=== PATIENT | male | born 1960 | race Hispanic/Latino ===

== ENCOUNTER 2023-01-04 01:34 | Inpatient (IN) | payer OTHER ==
--- OUTSIDE RECORDS SUMMARY | 2023-01-04 01:37 | XMS REPORT | Continuity of Care Document ---
:1960 Author Organization [facility] t Address [address] [place] [address] Care Team Providers Name Role Phone Linda Primary Care Physician Wendy Ferguson Attending Clinician KIM SIDHU Attending Clinician Unavailable KIM SIDHU Admitting Clinician Unavailable Payers Payer Name Policy Type Policy Number Effective Date Expiration Date S carolyn MEDICARE PART A [id number] 2016 \\T\\ B 00:00:00 MEDICAID OF [place] [id number] 2016 00:00:00 Problems Condition Condition Condition Status Onset Resolution Last Treating Co mments Source Name Details Category Date Date Treatment Clinician Date Acute Acute Disease Active [facility] ischemic [facility]-[address] 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 of speech. Hypertensi Hypertensi Disease Active [facility] No known No known Disease Unive rs active active ity of problems problems [facility] Allergies, Adverse Reactions, Alerts Allergy Allergy Status Severity Reaction(s) Onset Inactive Treating Comm ents Source Name Type Date Date Clinician NO KNOWN Drug Active Univers ALLERGIE Class ity of S [facility] Family History Family Member Diagnosis Comments Start Date Stop Date Source Natural brother Hypertension [facility] Natural mother Hypertension [facility] L [facility] Social History Social Habit Start Date Stop Date Quantity Comments Source Exposure to Not sure [facility]-CoV-2 [facility] (event) Branch Alcohol intake 2017-08-25 2017-08-25 [facility] (finding) Tobacco use and 2017-08-22 2017-08-[address] [facility] exposure 00:00:00 00:00:00 Medical Center Sex Assigned At [address] [facility] 00:00:00 00:[facility]:00 [facility] Center Smoking Status Start Date Stop Date Source Never smoker [facility] Medications Ordered Filled Start Stop Current Ordering Indication Dosage Frequency Signature Comments Components Source Medication Medication Date Date Medication? Clinician (SIG) Name Name HYDROcodone 2020- No 1{tbl} 1 tablet, Univers -acetaminop 06-04 07- Oral, ity of hen (NORCO 04:15: 03:29 ONCE, 1 Faustino as 5) 5-325 mg 00 :00 dose, Mon Med ical tablet 1 06/03/21 at [place] tablet 2315, JULIET DULoxetine Yes 60mg QD Take [address] (CYMBALTA) 9-29 by mouth [facility]ukes 60 MG 14:00: daily. Medical capsule 06 [place] amLODIPine Yes 10mg QD Take [address] (NORVASC) 9- by mouth Lukes 10 MG 14:00: daily. Medical tablet [address] [place] [address] hydrALAZINE Yes 50mg QD Take [address] (APRESOLINE 9-29 by mouth Luke s ) 50 MG 14:00: daily. Medical tablet [address] [place] [address] baclofen Yes 10mg Take [address] (LIORESAL) 9-29 by mouth Lukes 10 MG 14:00: every 6 Medical tablet 06 (six) Center hours as needed. ranitidine Yes 150mg QD Take [address] (ZANTAC) 9-29 mg by Lukes 150 MG 14:00: mouth Medical tablet 06 daily. Center valproate Yes Q.5D Take by [facility] t (DEPAKENE) 08-28 mouth 2 [facility]ukes 250 mg/5 mL 14:00: (two) Medic al syrup 06 times Center daily. lactulose Yes constipatio 20g Take [address] (CHRONULAC) 08-28 n by mouth 2 Ruthie kes 20 gram/30 14:00: (two) Medica l mL solution 06 times Center daily as needed. lisinopril Yes 40mg QD Take [address] (PRINIVIL,Z 08-28 by mouth Luke s ESTRIL) 40 14:00: daily. Medic al MG tablet 06 Center gabapentin Yes 300mg [id number] Take [address] (NEURONTIN) 08-28 [id number] mg by L ukes 300 MG 14:00: 3D mouth 3 Medical capsule 06 (three) Center times daily. melatonin 3 Yes 3mg QD Take [address] mg Tab 08-28 by mouth Lukes tablet 14:00: nightly. [address] ondansetron Yes 4mg Take [address] (ZOFRAN) 4 08-28 by mouth Lukes MG tablet 14:00: every 8 Medic al 06 (eight) Center hours as needed for Nausea. traMADol Yes 50mg Take [address] (ULTRAM) 50 08-28 by mouth Luke s mg tablet 14:00: every 6 Medic al 06 (six) Center hours as needed for Pain. multivitami Yes 10mL QD Take [address] n Liqd 08-28 mLs by Lukes 00:00: mouth Medical 00 daily. [place] acetaminoph Yes Take by Uni vers en 325 mg 4-12 mouth. ity of Cap 19:50: [address] amLODIPine 2016- Yes 10mg Take 10 mg U nivers 10 mg 4-12 by mouth ity of tablet 19:50: daily. [address] baclofen 10 Yes 10mg Take 10 mg Univers mg tablet 4-12 by mouth 3 ity of 19:50: (three) [place] [address] times [facility] daily. Branch Docusate Yes Take by Univer s Sodium 100 4-12 mouth. ity of mg tablet 19:50: [address] DULoxetine 2017-0 Yes 60mg Take 60 mg U nivers (CYMBALTA) 4-12 by mouth ity o f 60 mg 19:50: daily. [place] capsule [address] [place] [address] hydralAZINE 2017-0 Yes 100mg Take 100 U nivers 100 mg 4-12 mg by ity of tablet 19:50: mouth [place] [address] every 6 Medical (six) Branch hours. lactulose 2017-0 Yes 30mL Take 30 mL Un amando 10 gram/15 4-12 by mouth ity o f mL oral 19:50: daily. [place] solution [address] [place] [address] lisinopril 2017-0 Yes 40mg Take 40 mg U nivers 40 mg 4-12 by mouth ity of tablet 19:50: daily. [address] gabapentin 2017-0 Yes 100mg Take 100 Un amando 100 mg 4-12 mg by ity of capsule 19:50: mouth 3 [place] [address] (three) Medical times Branch daily. ranitidine 2017- Yes 150mg Take 150 Un amando 150 mg 4-12 mg by ity of tablet 19:50: mouth 2 [place] [address] (two) Medical times Branch daily. valproic Yes Take by Univer s acid 3-27 mouth ity of (DEPAKENE) 19:15: every 8 [place] 250 mg/5 mL 54 (eight) Medic al solution hours. [place] Vital Signs Vital Name Observation Time Observation Value Comments Source Systolic blood 2021-06-04 05:01:00 139 [facility]Hg[facility] Diastolic blood 2021-06-04 05:01:00 73 mm[Hg] [facility] rate 2021-06-04 05:01:00 64 /min [facility] Respiratory rate 2021-06-04 05:01:00 20 /min [facility] Oxygen saturation in 2021-06-04 05:01:00 95 /min [facility] Arterial blood by [facility] Pulse oximetry Branch Body temperature 2021-06-04 01:49:00 36.67 [place] [facility] Body weight 2021-06-04 01:49:00 83.915 kg [facility] BMI 2021-06-04 01:49:00 30.79 kg/m2 [facility] ty [facility] Procedures Procedure Date / Time Performed Performing Clinician Daniel e XR FOOT 3+ VW RIGHT 2021-06-04 04:00:16 Wendy Solano Univers ity of [facility] CT 2021-06-04 02:50:20 Wendy Solano [facility] MAXILLOFACIAL/MANDIBL Medical Br anch E WO CONTRAST NOTICE OF PRIVACY 2021-06-04 02:14:47 Doctor Unassigned, No Univ [facility] PRACTICES Name Medical Branch CONSENT/REFUSAL FOR 2021-06-04 02:12:29 Doctor Unassigned, No [facility] AND Name Medical Branch TREATMENT Encounters Start End Encounter Admission Attending Care Care Encounter Source Date/Time Date/Time Type Type Clinicians Facility Department ID 2021-09-30 Emergency [facility] [id number] [facility] 2021-06-04 Emergency [facility] [id number] Univers 20:45:00 00:08:00 Wendy Amigo [id number] i ty of [place] [id number] [facility] [id number] [facility] alesha 084 Branch Results Test Description Test Time Test Comments Results Result Daniel chang Comments CT No acute facial Universi ty of MAXILLOFACIAL/MA 6 fracture. Extensive [place] [facility] NDIBLE WO 04:05:18 dental caries. The Branch CONTRAST left medial and lateral maxillary incisors areabsent, without definite acute fracture. Clinical correlation is suggested. RL: [id number] AFC: [id number] Ordering physician: WENDY SOLANO INDICATION: Acute facial trauma COMPARISON: None TECHNIQUE: Axial images of the face or performed without the administrationof intravenous contrast. Images were reformatted in the coronal andsagittal plane. CT scan was performed according to ALARA (as low asreasonably achievable) policy. FINDINGS: No acute process is appreciated in the visualized aspect of thebrain. The globes are intact bilaterally without CT evidence forretrobulbar hemorrhage. No acute facial fracture is appreciated. Theparanasal sinuses are clear. There are extensive dental caries. [facility], Radiant Results Inft User - 06/03/2021 11:06 PM CDT Ordering physician: WENDY OLSENDICATION: Acute facial traumaCOMPARISON: NoneTECHNIQUE: Axial images of the face or performed without the administrationof intravenous contrast. Images were reformatted in the coronal andsagittal plane. CT scan was performed according to ALARA (as low asreasonably achievable) policy.FINDINGS: No acute process is appreciated in the visualized aspect of thebrain. The globes are intact bilaterally without CT evidence forretrobulbar hemorrhage. No acute facial fracture is appreciated. Theparanasal sinuses are clear. There are extensive dental caries.IMPRESSIONNo acute facial fracture.Extensive dental caries. The left medial and lateral maxillary incisors areabsent, without definite acute fracture. Clinical correlation is suggested.RL: [id number]: [id number] signed by Perla Boothe MD, PhD at 06/03/2021 11:05 PM RAD, Reason for Addendum BeginsREPORT ABDOMEN/KUB, 1 2 exam:->r/o STATUS:A PATIENT ID: VIEW AP 23:02:00 volvulus [id number] Indication: Abdominal distention. Signed: Christa Mccrayeport Verified Date/Time: 08/31/2017 23:02:03 Reading Location: [address] Ortho Consult Reading RoomAddendum EndsFINAL REPORT RAD, ABDOMEN/KUB, 1 VIEW AP CLINICAL INDICATION: "r/o volvulus" COMPARISON: None TECHNIQUE: Single, frontal radiograph of the abdomen. IMPRESSION: Massively distended left colon concerning for sigmoid volvulus versus distal large bowel obstruction.No pneumatosis or obvious pneumoperitoneum.No acute osseous abnormality. Findings were communicated to Dr. Lugo at the time of this dictation. Signed: Christa Mccray MDReport Verified Date/Time: 08/22/2017 21:01:42 Reading Location: [address] Ortho Consult Reading Room UE EXAM Surgical Pathology 2 Report Case: 18:26:00 [id number] Authorizing Provider: Alberto Murillo MD Collected: 08/23/2017 1239 Ordering Location: [facility] PERIOPERATIVE Received: 08/24/2017 0813 SERVICES Pathologist: Janessa Farias MD Specimens: A) - Large Intestine, Colon - Sigmoid B) - Soft Tissue, Other, rectal stump C) - Appendix A. COLON, SIGMOID, RESECTION: - COLONIC MUCOSA WITH ISCHEMIC TYPE CHANGES - SEROSA WITH ADHESION AND REACTIVE CHANGES - PREDOMINANTLY VIABLE SURGICAL RESECTION MARGINS WITH MUCOSAL ISCHEMIC CHANGES - THREE BENIGN LYMPH NODES - NEGATIVE FOR MALIGNANCYB. RECTUM, STUMP, RESECTION: - SUBMUCOSAL EDEMA AND CONGESTION - SEROSA WITH ADHESION AND REACTIVE CHANGES - MARGINS ARE VIABLEC. APPENDIX, APPENDECTOMY: - ACUTE SEROSITIS WITH REACTIVE CHANGES Signing Pathologist Direct Phone Line: [phone] jake signed by Janessa Farias MD on 08/31/2017 at 6:26 PMA. [id number]. [id number]. [id number] bowel, sigmoid volvulusA. Sigmoid colon; B. Rectal stump; C. AppendixSpecimen A: Received fresh labeled "large intestine, colon sigmoid" is a 51.0 cm in length x 16.0 cm in circumference dilated extending of sigmoid colon.The serosal surface is purple-parker and smooth.The colon is opened to reveal pink-parker, dusky, edematous mucosa throughout with obliteration of the mucosal folds and a markedly dilated lumen. No discrete masses or perforations are identified.Section code: A1, parallel resection margins; A2-A6, patient accounting representative sections of colon; A7, three intact lymph nodes.Specimen B: Received fresh labeled "soft tissue, other", description "rectal stump" is a segment of colon measuring 1.5 cm in length and 12.5 cm in diameter.The serosal surface is purple-parker to red, dusky and edematous.The specimen is opened to reveal pink-parker, dusky, edematous mucosa throughout with obliteration of the mucosal folds. No discrete masses are identified.Section code: B1-B2, parallel resection margins; B3-B5, patient accounting representative section of colon.Specimen C: Received fresh labeled "appendix" is a 4.0 cm in length x 0.6 cm in diameter, intact, vermiform appendix with attached mesoappendix.The serosal surface is purple-parker, dusky, and smooth. Sectioning reveals an unremarkable lumen containing yellow-green semisolid material.Section code: C1, parallel resection margin; C2, patient accounting representative sections of appendix. DB/ewPerformed CLOSTRIDIUM DIFFICILE TOXIN PCR 2017-08-28 14:00:00 Test Item Value Reference Range Interpretation Comme nts CLOSTRIDIUM DIFFICILE TOXIN, PCR (TASHIA) (test code = Not D etected Not Detected 1525) This qualitative real-time polymerase chain reaction assay detects the tcdB gene, encoded on the C.difficile pathogenicity locus (PaLoc). The product of tcdB, toxin B, is a cytotoxin essential for causing C.difficile-associated disease (CDAD) and is found in virtually all toxigenic C.difficile.This assay is performed for patients suspected of having either community-acquired or nosocomial CDAD. Accordingly, only symptomatic patients should be tested and formed stools will be rejected unless ileus ispresent (i.e., specified when ordering). Patients may be colonized with toxigenic C.difficile strains not causing active disease; therefore, clinical correlation is needed when deciding how to manage patients with a positive test result.The assay has not been validated as a test of cure as amplifiablenucleic acid may persist after effective treatment; therefore, follow-up testing of a positive result is not recommended.This qualitative real-time polymerase chain reaction assay detects the tcdB gene, encoded on the C.difficile pathogenicity locus (PaLoc). The product of tcdB, toxin B, is a cytotoxin essential for causing C.difficile- associated disease (CDAD) and is found in virtually all toxigenic C.difficile.This assay is performed for patients suspected of having either community-acquired or nosocomial CDAD. Accordingly, only symptomatic patients should be tested and formed stools will be rejected unless ileus is present (i.e., specified when ordering). Patients may be colonized with toxigenic C.difficile strains not causing active disease; therefore, clinical correlation is needed when deciding how to manage patients with a positive test result.The assay has not been validated as a test ofcure as amplifiable nucleic acid may persist after effective treatment; therefore, follow-up testingof a positive result is not recommended.POCT-GLUCOSE [id number] 12:44:00 Test Item Value Reference Range Interpretation Comments POC-GLUCOSE METER 131 mg/dL 70-110 H TESTED AT [facility] [address] ([employer]) (test code = [place]) [address] POCT-GLUCOSE [id number] 08:30:00 Test Item Value Reference Range Interpretation Comments POC-GLUCOSE METER 128 mg/dL 70-110 H TESTED AT [facility] 67[address] (BEAKER) (test code = [place] 1538) [address] BASIC METABOLIC [id number] 05:23:00 Test Item Value Reference Range Interpretation Comments SODIUM (BEAKER) 136 meq/L 136-145 (test code = 381) POTASSIUM (BEAKER) 3.6 meq/L 3.5-5.1 (test code = 379) CHLORIDE (BEAKER) 105 meq/L 98-107 (test code = 382) CO2 (BEAKER) (test 25 meq/L 22-29 code = 355) BLOOD UREA NITROGEN 9 mg/dL 7-21 (BEAKER) (test code = 354) CREATININE (BEAKER) 0.58 mg/dL 0.57-1.25 (test code = 358) GLUCOSE RANDOM 100 mg/dL 70-105 (BEAKER) (test code = 652) CALCIUM (BEAKER) 7.7 mg/dL 8.4-10.2 L (test code = 697) EGFR (BEAKER) (test 146 mL/min/1.73 ESTIM ATED GFR IS code = 1092) sq m NOT ACCURATE CREATININE CLEARANCE IN PREDICTING GLOMERULAR FILTRATION RATE . ESTIMATED GFR I S NOT APPLICABLE FOR DIALYSIS PATIEN TS. [id number] 05:22:00 Test Item Value Reference Range Interpretation Comments PHOSPHORUS (BEAKER) (test code = 2.2 mg/dL 2.3-4.7 L 604) [id number] 05:22:00 Test Item Value Reference Range Interpretation Comments MAGNESIUM (BEAKER) (test code = 1.8 mg/dL 1.6-2.6 627) CBC (HEMOGRAM ONLY)2017-08-28 05:02:00 Test Item Value Reference Range Interpretation Comments WHITE BLOOD CELL COUNT (BEAKER) 6.5 K/ L 3.5-10.5 (test code = 775) RED BLOOD CELL COUNT (BEAKER) 3.86 M/ L 4.63-6.08 L (test code = 761) HEMOGLOBIN (BEAKER) (test code = 9.9 GM/DL 13.7-17.5 L 410) HEMATOCRIT (BEAKER) (test code = 30.9 % 40.1-51.0 L 411) MEAN CORPUSCULAR VOLUME (BEAKER) 80.1 fL 79.0-92.2 (test code = 753) MEAN CORPUSCULAR HEMOGLOBIN 25.6 pg 25.7-32.2 L (BEAKER) (test code = 751) MEAN CORPUSCULAR HEMOGLOBIN CONC 32.0 GM/DL 32.3-36.5 L (BEAKER) (test code = 752) RED CELL DISTRIBUTION WIDTH 14.8 % 11.6-14.4 H (BEAKER) (test code = 412) PLATELET COUNT (BEAKER) (test 429 K/CU MM 150-450 code = 756) MEAN PLATELET VOLUME (BEAKER) 9.9 fL 9.4-12.4 (test code = 754) NUCLEATED RED BLOOD CELLS 0 /100 WBC 0-0 (AKER) (test code = 413) POCT-GLUCOSE [id number] 00:30:00 Test Item Value Reference Range Interpretation Comments POC-GLUCOSE METER 113 mg/dL 70-110 H TESTED AT [place] [address] ([facility]) (test code = [facility] 1538) [address] POCT-GLUCOSE [id number] 21:15:00 Test Item Value Reference Range Interpretation Comments POC-GLUCOSE METER 94 mg/dL 70-110 TESTED AT [place] [address] ([facility]) (test code = [facility] [address] 1538) POCT-GLUCOSE [id number] 12:01:00 Test Item Value Reference Range Interpretation Comments POC-GLUCOSE METER 105 mg/dL 70-110 TESTED AT [place] [address] ([facility]) (test code = [facility] 1538) [address] URINALYSIS W/ REFLEX URINE [id number] 07:45:00 Test Item Value Reference Range Interpretation Comments COLOR (BEAKER) (test code = 470) Yellow CLARITY (BEAKER) (test code = 469) Cloudy SPECIFIC GRAVITY UA (BEAKER) (test 1.016 1.001-1.035 code = 468) PH UA (BEAKER) (test code = 467) 7.0 5.0-8.0 PROTEIN UA (BEAKER) (test code = Negative Negative 464) GLUCOSE UA (BEAKER) (test code = Negative Negative 365) KETONES UA (BEAKER) (test code = 80 mg/dL Negative A 371) BILIRUBIN UA (BEAKER) (test code = Negative Negative 462) BLOOD UA (BEAKER) (test code = 461) Negative Negative NITRITE UA (BEAKER) (test code = Negative Negative 465) LEUKOCYTE ESTERASE UA (BEAKER) Negative Negative (test code = 466) UROBILINOGEN UA (BEAKER) (test code 8.0 mg/dL 0.2-1.0 H = 463) RBC UA (BEAKER) (test code = 519) 0 /HPF WBC UA (BEAKER) (test code = 520) 4 /HPF MUCUS (BEAKER) (test code = 1574) Few SOURCE(BEAKER) (test code = 2795) POCT-GLUCOSE [id number] 07:01:00 Test Item Value Reference Range Interpretation Comments POC-GLUCOSE METER 91 mg/dL 70-110 TESTED AT [facility] 6720 (BEAKER) (test code = [place] [facility] [address]38) BASIC METABOLIC [id number] 07:01:00 Test Item Value Reference Range Interpretation Comments SODIUM (BEAKER) 136 meq/L 136-145 (test code = 381) POTASSIUM (BEAKER) 3.5 meq/L 3.5-5.1 (test code = 379) CHLORIDE (BEAKER) 104 meq/L 98-107 (test code = 382) CO2 (BEAKER) (test 25 meq/L 22-29 code = 355) BLOOD UREA NITROGEN 16 mg/dL 7-21 (BEAKER) (test code = 354) CREATININE (BEAKER) 0.57 mg/dL 0.57-1.25 (test code = 358) GLUCOSE RANDOM 84 mg/dL 70-105 (BEAKER) (test code = 652) CALCIUM (BEAKER) 7.9 mg/dL 8.4-10.2 L (test code = 697) EGFR (BEAKER) (test 149 mL/min/1.73 ESTIM ATED GFR IS code = 1092) sq m NOT ACCURATE CREATININE CLEARANCE IN PREDICTING GLOMERULAR FILTRATION RATE . ESTIMATED GFR I S NOT APPLICABLE FOR DIALYSIS PATIEN TS. [id number] 06:56:00 Test Item Value Reference Range Interpretation Comments PHOSPHORUS (BEAKER) (test code = 2.4 mg/dL 2.3-4.7 604) [id number] 06:56:00 Test Item Value Reference Range Interpretation Comments MAGNESIUM (BEAKER) (test code = 1.6 mg/dL 1.6-2.6 627) CBC (HEMOGRAM ONLY)2017-08-27 06:36:00 Test Item Value Reference Range Interpretation Comments WHITE BLOOD CELL COUNT (BEAKER) 7.3 K/ L 3.5-10.5 (test code = 775) RED BLOOD CELL COUNT (BEAKER) 3.71 M/ L 4.63-6.08 L (test code = 761) HEMOGLOBIN (BEAKER) (test code = 9.6 GM/DL 13.7-17.5 L 410) HEMATOCRIT (BEAKER) (test code = 30.2 % 40.1-51.0 L 411) MEAN CORPUSCULAR VOLUME (BEAKER) 81.4 fL 79.0-92.2 (test code = 753) MEAN CORPUSCULAR HEMOGLOBIN 25.9 pg 25.7-32.2 (BEAKER) (test code = 751) MEAN CORPUSCULAR HEMOGLOBIN CONC 31.8 GM/DL 32.3-36.5 L (BEAKER) (test code = 752) RED CELL DISTRIBUTION WIDTH 15.1 % 11.6-14.4 H (BEAKER) (test code = 412) PLATELET COUNT (BEAKER) (test 416 K/CU MM 150-450 code = 756) MEAN PLATELET VOLUME (BEAKER) 9.3 fL 9.4-12.4 L (test code = 754) NUCLEATED RED BLOOD CELLS 0 /100 WBC 0-0 (BEAKER) (test code = 413) POCT-GLUCOSE [id number] 00:18:00 Test Item Value Reference Range Interpretation Comments POC-GLUCOSE METER 92 mg/dL 70-110 TESTED AT [facility] [address] (BEAKER) (test code = [place] [address] 1538) RAD, CHEST, 1 VIEW, NON [id number] 09:09:00Reason for exam:->fever, leukocytosisReason for exam:->assess for aspiration/pneumoniaShould this be performed at the bedside?->YesFINAL REPORT Chest one view. Clinical history: fever, leukocytosisassess for aspiration/pneumonia Comparison: August 24, 2017 Discussion: A frontal chest is provided. Cardiomediastinal contours are unchanged. Low lung volume. There is mild vascular congestion and interstitial edema. Previously seen atelectatic changes have improved. No new consolidation. No pneumothorax or significant pleural effusion. There is nonspecific gaseous distention of bowel. Signed: Charley Sahueport Verified Date/Time: 08/26/2017 09:09:27 Reading Location: [facility] Radiology Reading Room [id number] 06:20:00 Test Item Value Reference Range Interpretation Comments PHOSPHORUS (BEAKER) (test code = 2.9 mg/dL 2.3-4.7 604) [id number] 06:20:00 Test Item Value Reference Range Interpretation Comments MAGNESIUM (BEAKER) (test code = 1.4 mg/dL 1.6-2.6 L 627) BASIC METABOLIC [id number] 06:20:00 Test Item Value Reference Range Interpretation Comments SODIUM (BEAKER) 136 meq/L 136-145 (test code = 381) POTASSIUM (BEAKER) 3.5 meq/L 3.5-5.1 (test code = 379) CHLORIDE (BEAKER) 105 meq/L 98-107 (test code = 382) CO2 (BEAKER) (test 24 meq/L 22-29 code = 355) BLOOD UREA NITROGEN 15 mg/dL 7-21 (BEAKER) (test code = 354) CREATININE (BEAKER) 0.66 mg/dL 0.57-1.25 (test code = 358) GLUCOSE RANDOM 118 mg/dL 70-105 H (BEAKER) (test code = 652) CALCIUM (BEAKER) 8.0 mg/dL 8.4-10.2 L (test code = 697) EGFR (BEAKER) (test 126 mL/min/1.73 ESTIM ATED GFR IS code = 1092) sq m NOT ACCURATE CREATININE CLEARANCE IN PREDICTING GLOMERULAR FILTRATION RATE . ESTIMATED GFR I S NOT APPLICABLE FOR DIALYSIS PATIEN TS. PROTHROMBIN [id number] 06:16:00 Test Item Value Reference Range Interpretation Comments PROTIME (BEAKER) (test code = 16.8 seconds 11.7-14.7 H 759) INR (BEAKER) (test code = 370) 1.4 <=5.9 RECOMMENDED COUMADIN/WARFARIN INR THERAPY RANGESSTANDARD DOSE: 2.0 - 3.0 Includes: PROPHYLAXIS for venous thrombosis, systemic embolization; TREATMENT for venous thrombosis and/or pulmonary embolus.HIGH RISK: Target INR is 2.5-3.5 for patients with mechanical heart valves.CBC (HEMOGRAM ONLY)2017-08-26 06:07:00 Test Item Value Reference Range Interpretation Comments WHITE BLOOD CELL COUNT (BEAKER) 12.5 K/ L 3.5-10.5 H (test code = 775) RED BLOOD CELL COUNT (BEAKER) 4.12 M/ L 4.63-6.08 L (test code = 761) HEMOGLOBIN (BEAKER) (test code = 10.5 GM/DL 13.7-17.5 L 410) HEMATOCRIT (BEAKER) (test code = 33.2 % 40.1-51.0 L 411) MEAN CORPUSCULAR VOLUME (BEAKER) 80.6 fL 79.0-92.2 (test code = 753) MEAN CORPUSCULAR HEMOGLOBIN 25.5 pg 25.7-32.2 L (BEAKER) (test code = 751) MEAN CORPUSCULAR HEMOGLOBIN CONC 31.6 GM/DL 32.3-36.5 L (BEAKER) (test code = 752) RED CELL DISTRIBUTION WIDTH 15.3 % 11.6-14.4 H (BEAKER) (test code = 412) PLATELET COUNT (BEAKER) (test 407 K/CU MM 150-450 code = 756) MEAN PLATELET VOLUME (BEAKER) 9.8 fL 9.4-12.4 (test code = 754) NUCLEATED RED BLOOD CELLS 0 /100 WBC 0-0 (BEAKER) (test code = 413) [id number] 04:23:00 Test Item Value Reference Range Interpretation Comments PHOSPHORUS (BEAKER) (test code = 1.8 mg/dL 2.3-4.7 L 604) [id number] 04:23:00 Test Item Value Reference Range Interpretation Comments MAGNESIUM (BEAKER) (test code = 1.6 mg/dL 1.6-2.6 627) BASIC METABOLIC [id number] 04:23:00 Test Item Value Reference Range Interpretation Comments SODIUM (BEAKER) 134 meq/L 136-145 L (test code = 381) POTASSIUM (BEAKER) 3.8 meq/L 3.5-5.1 (test code = 379) CHLORIDE (BEAKER) 106 meq/L 98-107 (test code = 382) CO2 (BEAKER) (test 23 meq/L 22-29 code = 355) BLOOD UREA NITROGEN 8 mg/dL 7-21 (BEAKER) (test code = 354) CREATININE (BEAKER) 0.65 mg/dL 0.57-1.25 (test code = 358) GLUCOSE RANDOM 111 mg/dL 70-105 H (BEAKER) (test code = 652) CALCIUM (BEAKER) 8.0 mg/dL 8.4-10.2 L (test code = 697) EGFR (BEAKER) (test 128 mL/min/1.73 ESTIM ATED GFR IS code = 1092) sq m NOT ACCURATE CREATININE CLEARANCE IN PREDICTING GLOMERULAR FILTRATION RATE . ESTIMATED GFR I S NOT APPLICABLE FOR DIALYSIS PATIEN TS. PROTHROMBIN [id number] 04:05:00 Test Item Value Reference Range Interpretation Comments PROTIME (BEAKER) (test code = 16.3 seconds 11.7-14.7 H 759) INR (BEAKER) (test code = 370) 1.3 <=5.9 RECOMMENDED COUMADIN/WARFARIN INR THERAPY RANGESSTANDARD DOSE: 2.0 - 3.0 Includes: PROPHYLAXIS for venous thrombosis, systemic embolization; TREATMENT for venous thrombosis and/or pulmonary embolus.HIGH RISK: Target INR is 2.5-3.5 for patients with mechanical heart valves.CBC (HEMOGRAM ONLY)2017-08-25 03:56:00 Test Item Value Reference Range Interpretation Comments WHITE BLOOD CELL COUNT (BEAKER) 8.9 K/ L 3.5-10.5 (test code = 775) RED BLOOD CELL COUNT (BEAKER) 4.14 M/ L 4.63-6.08 L (test code = 761) HEMOGLOBIN (BEAKER) (test code = 10.5 GM/DL 13.7-17.5 L 410) HEMATOCRIT (BEAKER) (test code = 33.6 % 40.1-51.0 L 411) MEAN CORPUSCULAR VOLUME (BEAKER) 81.2 fL 79.0-92.2 (test code = 753) MEAN CORPUSCULAR HEMOGLOBIN 25.4 pg 25.7-32.2 L (BEAKER) (test code = 751) MEAN CORPUSCULAR HEMOGLOBIN CONC 31.3 GM/DL 32.3-36.5 L (BEAKER) (test code = 752) RED CELL DISTRIBUTION WIDTH 15.5 % 11.6-14.4 H (BEAKER) (test code = 412) PLATELET COUNT (BEAKER) (test 385 K/CU MM 150-450 code = 756) MEAN PLATELET VOLUME (BEAKER) 9.0 fL 9.4-12.4 L (test code = 754) NUCLEATED RED BLOOD CELLS 0 /100 WBC 0-0 (BEAKER) (test code = 413) RAD, CHEST, 1 VIEW, NON [id number] 19:13:00Reason for exam:->evaluate for fluid overloadFINAL REPORT Chest, portable AP view History: Shortness of breath Comparison: No comparisons available for review IMPRESSION: The heart is within normal limits of size. There are low lung volumes. Pulmonary vascular congestion is present. There is mild interstitial edema. There isno focal consolidation, sizable pleural effusion, or pneumothorax. Signed: Yariel Duncan Verified Date/Time: 08/24/2017 19:13:39 Reading Location: [address] Consult Reading Room POCT-GLUCOSE METER 2017-08-24 11:31:00 Test Item Value Reference Range Interpretation Comments POC-GLUCOSE METER 135 mg/dL 70-110 H TESTED AT [facility] 6720 (BEAKER) (test code = [place] 1538) [id number] CBC (HEMOGRAM ONLY)2017-08-24 06:14:00 Test Item Value Reference Range Interpretation Comments WHITE BLOOD CELL COUNT (BEAKER) 5.4 K/ L 3.5-10.5 (test code = 775) RED BLOOD CELL COUNT (BEAKER) 4.31 M/ L 4.63-6.08 L (test code = 761) HEMOGLOBIN (BEAKER) (test code = 10.8 GM/DL 13.7-17.5 L 410) HEMATOCRIT (BEAKER) (test code = 35.6 % 40.1-51.0 L 411) MEAN CORPUSCULAR VOLUME (BEAKER) 82.6 fL 79.0-92.2 (test code = 753) MEAN CORPUSCULAR HEMOGLOBIN 25.1 pg 25.7-32.2 L (BEAKER) (test code = 751) MEAN CORPUSCULAR HEMOGLOBIN CONC 30.3 GM/DL 32.3-36.5 L (BEAKER) (test code = 752) RED CELL DISTRIBUTION WIDTH 15.6 % 11.6-14.4 H (BEAKER) (test code = 412) PLATELET COUNT (BEAKER) (test 414 K/CU MM 150-450 code = 756) MEAN PLATELET VOLUME (BEAKER) 9.5 fL 9.4-12.4 (test code = 754) NUCLEATED RED BLOOD CELLS 0 /100 WBC 0-0 (BEAKER) (test code = 413) BASIC METABOLIC [id number] 06:08:00 Test Item Value Reference Range Interpretation Comments SODIUM (BEAKER) 139 meq/L 136-145 (test code = 381) POTASSIUM (BEAKER) 3.9 meq/L 3.5-5.1 (test code = 379) CHLORIDE (BEAKER) 111 meq/L 98-107 H (test code = 382) CO2 (BEAKER) (test 23 meq/L 22-29 code = 355) BLOOD UREA NITROGEN 17 mg/dL 7-21 (BEAKER) (test code = 354) CREATININE (BEAKER) 0.72 mg/dL 0.57-1.25 (test code = 358) GLUCOSE RANDOM 121 mg/dL 70-105 H (BEAKER) (test code = 652) CALCIUM (BEAKER) 7.7 mg/dL 8.4-10.2 L (test code = 697) EGFR (BEAKER) (test 114 mL/min/1.73 ESTIM ATED GFR IS code = 1092) sq m NOT ACCURATE CREATININE CLEARANCE IN PREDICTING GLOMERULAR FILTRATION RATE . ESTIMATED GFR I S NOT APPLICABLE FOR DIALYSIS PATIEN TS. [id number] 06:07:00 Test Item Value Reference Range Interpretation Comments PHOSPHORUS (BEAKER) (test code = 2.8 mg/dL 2.3-4.7 604) [id number] 06:07:00 Test Item Value Reference Range Interpretation Comments MAGNESIUM (BEAKER) (test code = 1.8 mg/dL 1.6-2.6 627) PROTHROMBIN [id number] 05:57:00 Test Item Value Reference Range Interpretation Comments PROTIME (BEAKER) (test code = 16.6 seconds 11.7-14.7 H 759) INR (BEAKER) (test code = 370) 1.4 <=5.9 RECOMMENDED COUMADIN/WARFARIN INR THERAPY RANGESSTANDARD DOSE: 2.0 - 3.0 Includes: PROPHYLAXIS for venous thrombosis, systemic embolization; TREATMENT for venous thrombosis and/or pulmonary embolus.HIGH RISK: Target INR is 2.5-3.5 for patients with mechanical heart valves.POCT-GLUCOSE [id number] 15:56:00 Test Item Value Reference Range Interpretation Comments POC-GLUCOSE METER 144 mg/dL 70-110 H TESTED AT [facility] 6720 (BEAKER) (test code = [place] 1538) [id number] 05:55:00 Test Item Value Reference Range Interpretation Comments PHOSPHORUS (BEAKER) (test code = 3.8 mg/dL 2.3-4.7 604) [id number] 05:55:00 Test Item Value Reference Range Interpretation Comments MAGNESIUM (BEAKER) (test code = 1.6 mg/dL 1.6-2.6 627) BASIC METABOLIC [id number] 05:55:00 Test Item Value Reference Range Interpretation Comments SODIUM (BEAKER) 139 meq/L 136-145 (test code = 381) POTASSIUM (BEAKER) 3.4 meq/L 3.5-5.1 L (test code = 379) CHLORIDE (BEAKER) 107 meq/L 98-107 (test code = 382) CO2 (BEAKER) (test 22 meq/L 22-29 code = 355) BLOOD UREA NITROGEN 21 mg/dL 7-21 (BEAKER) (test code = 354) CREATININE (BEAKER) 0.73 mg/dL 0.57-1.25 (test code = 358) GLUCOSE RANDOM 94 mg/dL 70-105 (BEAKER) (test code = 652) CALCIUM (BEAKER) 8.5 mg/dL 8.4-10.2 (test code = 697) EGFR (BEAKER) (test 112 mL/min/1.73 ESTIM ATED GFR IS code = 1092) sq m NOT ACCURATE CREATININE CLEARANCE IN PREDICTING GLOMERULAR FILTRATION RATE . ESTIMATED GFR I S NOT APPLICABLE FOR DIALYSIS PATIEN TS. CBC W/PLT COUNT & AUTO [id number] 05:38:00 Test Item Value Reference Range Interpretation Comments WHITE BLOOD CELL COUNT (BEAKER) 9.8 K/ L 3.5-10.5 (test code = 775) RED BLOOD CELL COUNT (BEAKER) 4.25 M/ L 4.63-6.08 L (test code = 761) HEMOGLOBIN (BEAKER) (test code = 11.0 GM/DL 13.7-17.5 L 410) HEMATOCRIT (BEAKER) (test code = 34.3 % 40.1-51.0 L 411) MEAN CORPUSCULAR VOLUME (BEAKER) 80.7 fL 79.0-92.2 (test code = 753) MEAN CORPUSCULAR HEMOGLOBIN 25.9 pg 25.7-32.2 (BEAKER) (test code = 751) MEAN CORPUSCULAR HEMOGLOBIN CONC 32.1 GM/DL 32.3-36.5 L (BEAKER) (test code = 752) RED CELL DISTRIBUTION WIDTH 15.6 % 11.6-14.4 H (BEAKER) (test code = 412) PLATELET COUNT (BEAKER) (test 458 K/CU MM 150-450 H code = 756) MEAN PLATELET VOLUME (BEAKER) 9.0 fL 9.4-12.4 L (test code = 754) NUCLEATED RED BLOOD CELLS 0 /100 WBC 0-0 (BEAKER) (test code = 413) NEUTROPHILS RELATIVE PERCENT 74 % (BEAKER) (test code = 429) LYMPHOCYTES RELATIVE PERCENT 15 % (BEAKER) (test code = 430) MONOCYTES RELATIVE PERCENT 10 % (BEAKER) (test code = 431) EOSINOPHILS RELATIVE PERCENT 0 % (BEAKER) (test code = 432) BASOPHILS RELATIVE PERCENT 0 % (BEAKER) (test code = 437) NEUTROPHILS ABSOLUTE COUNT 7.24 K/ L 1.78-5.38 H (BEAKER) (test code = 670) LYMPHOCYTES ABSOLUTE COUNT 1.45 K/ L 1.32-3.57 (BEAKER) (test code = 414) MONOCYTES ABSOLUTE COUNT (BEAKER) 0.96 K/ L 0.30-0.82 H (test code = 415) EOSINOPHILS ABSOLUTE COUNT 0.02 K/ L 0.04-0.54 L (BEAKER) (test code = 416) BASOPHILS ABSOLUTE COUNT (BEAKER) 0.03 K/ L 0.01-0.08 (test code = 417) IMMATURE GRANULOCYTES-RELATIVE 1 % 0-1 PERCENT (BEAKER) (test code = 2801) RAD, ABDOMEN/KUB, 1 VIEW [id number] 00:17:00Reason for exam:->evaluate tube placement and compare volvulus from before Should this be performed at the bedside?->YesFINAL REPORT EXAMINATION: SUPINE ABDOMEN CLINICAL INDICATION: Sigmoid volvulus,status post rectal tube placement. Evaluate for interval change. IMPRESSION: Compared with 08/22/2017, 2032 hours Two rectal tubes have been placed in the interval. The tip of one of the tubes projects over the midline near the level of the sacrum. The tip of the second tube projects over the left lower pelvis. Overall, gaseous distention of the colon persists but is significantly improved. Large volume of inspissated stool is again noted within the colon. The colonic fecal burden limits evaluation for pneumatosis. Evaluation for free air is limited by supine patient positioning. Signed: Lincoln Munoz [place] Verified Date/Time: 08/23/2017 00:17:48 Reading Location: [address] Reading Room LACTATE DEHYDROGENASE (LDH)2017-08-22 21:20:00 Test Item Value Reference Range Interpretation Comments LACTATE DEHYDROGENASE (BEAKER) (test 237 U/L 125-220 H code = 635) COMPREHENSIVE METABOLIC [id number] 21:20:00 Test Item Value Reference Range Interpretation Comments TOTAL PROTEIN 7.1 gm/dL 6.0-8.3 (BEAKER) (test code = 770) ALBUMIN (BEAKER) 3.5 g/dL 3.5-5.0 (test code = 1145) ALKALINE PHOSPHATASE 87 U/L 40-150 (BEAKER) (test code = 346) BILIRUBIN TOTAL 0.3 mg/dL 0.2-1.2 (BEAKER) (test code = 377) SODIUM (BEAKER) (test 138 meq/L 136-145 code = 381) POTASSIUM (BEAKER) 3.4 meq/L 3.5-5.1 L (test code = 379) CHLORIDE (BEAKER) 104 meq/L 98-107 (test code = 382) CO2 (BEAKER) (test 24 meq/L 22-29 code = 355) BLOOD UREA NITROGEN 20 mg/dL 7-21 (BEAKER) (test code = 354) CREATININE (BEAKER) 0.78 mg/dL 0.57-1.25 (test code = 358) GLUCOSE RANDOM 122 mg/dL 70-105 H (BEAKER) (test code = 652) CALCIUM (BEAKER) 9.0 mg/dL 8.4-10.2 (test code = 697) AST (SGOT) (BEAKER) 11 U/L 5-34 (test code = 353) ALT (SGPT) (BEAKER) 11 U/L 6-55 (test code = 347) EGFR (BEAKER) (test 104 ESTIMATE D GFR IS code = 1092) mL/min/1.73 sq NOT ACCURA TE m CREATININE CLEARANCE IN PREDICTING GLOMERULAR FILTRATION RATE . ESTIMATED GFR I S NOT APPLICABLE FOR DIALYSIS PATIEN TS. LACTIC ACID, VENOUS, WHOLE [id number] 21:15:00 Test Item Value Reference Range Interpretation Comments LACTATE BLOOD VENOUS 1.2 mmol/L 0.5-2.2 Specime n slightly (2) (BEAKER) (test hemolyzed code = 2872) Effective 04/02/2016: Units/Reference Range ChangeNew: 0.5-2.2 mmol/L Previous: 5- 20 mg/dLPROTHROMBIN [id number] 21:07:00 Test Item Value Reference Range Interpretation Comments PROTIME (BEAKER) (test code = 15.0 seconds 11.7-14.7 H 759) INR (BEAKER) (test code = 370) 1.2 <=5.9 RECOMMENDED COUMADIN/WARFARIN INR THERAPY RANGESSTANDARD DOSE: 2.0 - 3.0 Includes: PROPHYLAXIS for venous thrombosis, systemic embolization; TREATMENT for venous thrombosis and/or pulmonary embolus.HIGH RISK: Target INR is 2.5-3.5 for patients with mechanical heart valves.CBC W/PLT COUNT & AUTO [id number] 21:06:00 Test Item Value Reference Range Interpretation Comments WHITE BLOOD CELL COUNT (BEAKER) 11.9 K/ L 3.5-10.5 H (test code = 775) RED BLOOD CELL COUNT (BEAKER) 4.66 M/ L 4.63-6.08 (test code = 761) HEMOGLOBIN (BEAKER) (test code = 11.6 GM/DL 13.7-17.5 L 410) HEMATOCRIT (BEAKER) (test code = 37.2 % 40.1-51.0 L 411) MEAN CORPUSCULAR VOLUME (BEAKER) 79.8 fL 79.0-92.2 (test code = 753) MEAN CORPUSCULAR HEMOGLOBIN 24.9 pg 25.7-32.2 L (BEAKER) (test code = 751) MEAN CORPUSCULAR HEMOGLOBIN CONC 31.2 GM/DL 32.3-36.5 L (BEAKER) (test code = 752) RED CELL DISTRIBUTION WIDTH 15.7 % 11.6-14.4 H (BEAKER) (test code = 412) PLATELET COUNT (BEAKER) (test 439 K/CU MM 150-450 code = 756) MEAN PLATELET VOLUME (BEAKER) 9.0 fL 9.4-12.4 L (test code = 754) NUCLEATED RED BLOOD CELLS 0 /100 WBC 0-0 (BEAKER) (test code = 413) NEUTROPHILS RELATIVE PERCENT 87 % (BEAKER) (test code = 429) LYMPHOCYTES RELATIVE PERCENT 8 % (BEAKER) (test code = 430) MONOCYTES RELATIVE PERCENT 5 % (BEAKER) (test code = 431) EOSINOPHILS RELATIVE PERCENT 0 % (BEAKER) (test code = 432) BASOPHILS RELATIVE PERCENT 0 % (BEAKER) (test code = 437) NEUTROPHILS ABSOLUTE COUNT 10.26 K/ L 1.78-5.38 H (BEAKER) (test code = 670) LYMPHOCYTES ABSOLUTE COUNT 0.93 K/ L 1.32-3.57 L (BEAKER) (test code = 414) MONOCYTES ABSOLUTE COUNT (BEAKER) 0.60 K/ L 0.30-0.82 (test code = 415) EOSINOPHILS ABSOLUTE COUNT 0.00 K/ L 0.04-0.54 L (BEAKER) (test code = 416) BASOPHILS ABSOLUTE COUNT (BEAKER) 0.02 K/ L 0.01-0.08 (test code = 417) IMMATURE GRANULOCYTES-RELATIVE 0 % 0-1 PERCENT (BEAKER) (test code = 2801)
[2023-01-04] MEDS ORDERED: NA CHLORIDE 0.9% 2,000 ML ONE (01:48)
[2023-01-04] MEDS ORDERED: ACETAMINOPHEN 650MG/RECT SUPP PR ONE (01:48)
[2023-01-04 02:11] LABS: Arterial Blood Carboxyhemoglob 1.1 % (0-1.5); Blood Gas Oxyhemoglobin 95.6 % (94-97); Blood O2 Saturation 97.7 % (92-98.5)
[2023-01-04 02:22] LABS: Absolute Lymphocytes (CBC) 0.5 K/uL (0.7-4.9); Hematocrit 42.8 % (39.6-49.0); Lymphocytes % 9.2 % (15.3-44.8); MCV 92.4 fL (80-100); MPV 8.5 fL (7.6-11.3); RBC Red Blood Cell Count 4.63 M/uL (4.33-5.43)
[2023-01-04 02:28] LABS: Urine Blood 2+ (Negative); Urine Glucose Negative (Negative); Urine Protein Trace (Negative); Urine Specific Gravity >=1.030 (1.005-1.030); Urine pH 5.5 (5.0-7.0)
[2023-01-04 02:30] LABS: Protime INR 1.24
--- NOTE | 2023-01-04 02:37 | ER ---
Nurse's Notes [facility] Name: Chinedu Singh Age: 62 yrs Sex: Male : 1960 Arrival Date: 01/04/2023 Time: 01:38 Bed 3 Private MD: Diagnosis: Severe sepsis with septic shock;Aspiration event;Acute respiratory failure with hypoxia Presentation: 01/04 01:38 Chief complaint: EMS states: Toned out for aspiration, on arrival at [place] [address] home 02 70 % on RA , patient put on CPAP per EMS O2 increased to 92 %, per EMS do not know what patient aspirated on. Coronavirus screen: Vaccine status:. Ebola Screen: No symptoms or risks identified at this time. Initial Sepsis Screen: Does the patient meet any 2 criteria? Temp <36.0*C (96.8*F)) or > 38.3*C (100.9*F). HR > 90 bpm. Does the patient have a suspected source of infection? No. Patient's initial sepsis screen is negative. Risk Assessment: Do you want to hurt yourself or someone else? Patient reports no desire to harm self or others. Onset of symptoms was January 04, 2023 at 01:00. 01:38 Method Of Arrival: EMS ke1 01:38 Acuity: LITO 3 ke1 Triage Assessment: 01:50 General: Appears distressed, Behavior is drowsy. Pain: Unable to use pain scale. FLACC ke1 scale score is 0 out of 10. Historical: - Allergies: 01:44 No Known Allergies; ke1 - PMHx: 01:44 Hypertensive disorder; Depressive disorder; dysarthria; gerd; vascular dementia; ke1 hemiplegia; cerebral infarction; - Immunization history:: Adult Immunizations unknown. - Social history:: Smoking status: unknown. Screenin:50 Abuse screen: Denies threats or abuse. Nutritional screening: Difficulty ke1 chewing/swallowing? Yes. Tuberculosis screening: No symptoms or risk factors identified. 02:03 [facility] ED Fall Risk Assessment (Adult). ke1 Assessment: 01:51 Respiratory: Reports Airway is patent Patient placed CPAP:. ke1 02:04 Respiratory: Patient placed on BiPAP: Inspiratory Pressure: 16 Expiratory (EPAP) ke1 Pressure: 8 FiO2%: 90 Respiratory Rate: 18. Vital Signs: 01:38 BP 91 / 38; Pulse 112; Resp 15; Temp 101; Pulse Ox 94% on CPAP; Weight 91.17 kg; Height ke1 5 ft. 3 in. (160.02 cm); 02:03 BP 116 / 77; Pulse 103; Resp 18; Pulse Ox 95% on 90% BiPAP; ke1 02:29 BP 133 / 75; Pulse 95; Resp 22 S; Temp 101.5(C); Pulse Ox 99% on 95% BiPAP; as6 02:51 BP 105 / 94; Pulse 93; Resp 17 S; Temp 100.8(C); Pulse Ox 97% on 75% BiPAP; as6 04:28 BP 145 / 86; Pulse 86; Resp 21 S; Temp 99.2(C); Pulse Ox 97% on 75% BiPAP; as6 04:32 BP 145 / 86; Pulse 86; Resp 21; Temp 99.2; Pulse Ox 93% on BiPAP; Pain 0/10; ke1 01:38 Body Mass Index 35.61 (91.17 kg, 160.02 cm) ke1 ED Course: 01:38 Patient arrived in ED. ke1 01:38 Luma Howard MD is Attending Physician. sd2 01:38 Mile Castellano RN is Primary Nurse. ke1 01:42 Maintain EMS IV. Dressing intact. Good blood return noted. Site clean \T\ dry. Gauge \T\ tw 5 site: 22 Right hand. 01:42 O2 via RT at bedside patient placed on Bi-pap. tw5 01:42 Patient has correct armband on for positive identification. Client placed on continuous tw5 cardiac and pulse oximetry monitoring. NIBP monitoring applied. Noise minimized. 01:44 Triage completed. ke1 02:05 Chest Single View XRAY In Process Unspecified. EDMS 02:17 Pate cath inserted, using sterile technique, 16 Fr., returned avis urine. Patient as6 tolerated well. Inserted saline lock: 18 gauge in left EJ, using aseptic technique. Blood collected. 02:18 Arm band placed on. as6 02:35 Lion Tracey MD is Hospitalizing Provider. sd2 03:[address] In Process Unspecified. EDMS 03:50 Head Brain Wo Cont CT In Process Unspecified. EDMS 04:29 No provider procedures requiring assistance completed. Patient admitted, IV remains in as6 place. Administered Medications: 01:53 Drug: Acetaminophen Suppository 650 mg Route: NV; as6 04:36 Follow up: Response: No adverse reaction; Temperature is decreased as6 01:53 Drug: NS 0.9% (30 ml/kg) 30 ml/kg Route: IV; Rate: bolus; Site: right hand; as6 04:36 Follow up: Response: No adverse reaction; IV Status: Completed infusion; IV Intake: as6 2735.1ml 03:03 Drug: Zosyn (piperacillin-tazobactam) 4.5 grams Route: IVPB; Infused Over: 60 mins; as6 Site: left jugular; 04:36 Follow up: Response: No adverse reaction; IV Status: Completed infusion; IV Intake: as6 100ml Medication: 02:52 VIS not applicable for this client. as6 Intake: 04:36 IV: 100ml; Total: 100ml. as6 04:36 IV: 2735ml; Total: 2835ml. as6 Outcome: 02:36 Decision to Hospitalize by Provider. sd2 04:28 Admitted to Tele via stretcher, room 406, with oxygen, with chart, Report called to as6 Katrin MAHARAJ 04:28 Condition: stable 04:28 Instructed on the need for admit. 04:50 Patient left the ED. as6 Signatures: Dispatcher [employer] Asuncion Lopez tw5 Nagi Park RN RN as6 Mile Castellano RN RN ke1 Luma Howard MD MD sd2 Corrections: (The following items were deleted from the chart) 01:50 01:38 BP 91 / 38; Pulse 112bpm; Resp 15bpm; Pulse Ox 94% CPAP; Temp 101F; 83.91 kg; ke1 Height 5 ft. 3 in.; BMI: 32.7; ke1
--- NOTE | 2023-01-04 02:37 | EDPHYS ---
Physician Documentation [facility] Name: Chinedu Singh Age: 62 yrs Sex: Male : 1960 Arrival Date: 01/04/2023 Time: 01:38 Bed 3 Private MD: ED Physician Luma Howard HPI: 01/04 01:42 This 62 yrs old Male presents to ER via Unassigned with complaints of SOB. sd2 01:42 62-year-old male presents via EMS from [facility] with chief complaint of sd2 shortness of breath. They report they were told by the staff that the patient aspirated just prior to them calling for assistance. The patient was noted to be in the low 70s on room air upon EMSs arrival. They transitioned him to CPAP with good improvement of the oxygen saturations to 92%. Patient found to be febrile upon arrival with EMS. Unknown mental baseline for this patient as [facility]. . Historical: - Allergies: 01:44 No Known Allergies; ke1 - PMHx: 01:44 Hypertensive disorder; Depressive disorder; dysarthria; gerd; vascular dementia; ke1 hemiplegia; cerebral infarction; - Immunization history:: Adult Immunizations unknown. - Social history:: Smoking status: unknown. ROS: 01:45 Constitutional: Positive for fever. sd2 01:45 Respiratory: Positive for shortness of breath. 01:45 Unable to obtain ROS due to altered mental status. Exam: 01:45 Constitutional: This is a well developed, well nourished patient who is awake, alert, sd2 and in moderate distress. Head/Face: Normocephalic, atraumatic. Eyes: EOMI, normal conjunctiva bilaterally Chest/axilla: Normal chest wall appearance and motion. Nontender with no deformity. Cardiovascular: Tachycardic rate and regular rhythm with a normal S1 and S2. No gallops, murmurs, or rubs. 2+ distal pulses. Respiratory: Lungs with coarse crackles noted in all lung longo. No tachypnea but increased WOB with retractions. Abdomen/GI: Soft, non-tender, with normal bowel sounds. No guarding or rebound. No evidence of tenderness throughout. Skin: Warm, dry with normal turgor. Normal color with no rashes, no lesions, and no evidence of cellulitis. MS/ Extremity: Pulses equal, no cyanosis. Neurovascular intact. Full, normal range of motion. 01:54 ECG was reviewed by the Attending Physician. Sinus tachycardia, rate 108, no STEMI sd2 criteria, RBBB present Vital Signs: 01:38 BP 91 / 38; Pulse 112; Resp 15; Temp 101; Pulse Ox 94% on CPAP; Weight 91.17 kg; Height ke1 5 ft. 3 in. (160.02 cm); 02:03 BP 116 / 77; Pulse 103; Resp 18; Pulse Ox 95% on 90% BiPAP; ke1 02:29 BP 133 / 75; Pulse 95; Resp 22 S; Temp 101.5(C); Pulse Ox 99% on 95% BiPAP; as6 02:51 BP 105 / 94; Pulse 93; Resp 17 S; Temp 100.8(C); Pulse Ox 97% on 75% BiPAP; as6 04:28 BP 145 / 86; Pulse 86; Resp 21 S; Temp 99.2(C); Pulse Ox 97% on 75% BiPAP; as6 04:32 BP 145 / 86; Pulse 86; Resp 21; Temp 99.2; Pulse Ox 93% on BiPAP; Pain 0/10; ke1 01:38 Body Mass Index 35.61 (91.17 kg, 160.02 cm) ke1 MDM: 01:38 Patient medically screened. sd2 01:45 Differential Diagnosis Dehydration, electrolyte abnormality, UTI, PNA, anemia, sepsis sd2 among others. Data reviewed: vital signs, nurses notes, EMS record. 01:54 Independent interpretation of the following test(s) in the Emergency Department EKG: sd2 See my EKG interpretation above telemetry monitor: rate is 108 beats/min, Rhythm is sinus tachycardia, with no ectopy, Interpretation: tachycardia, Rhythm Strip Interpretation Rate: 108BPM Rhythm: regular. 02:33 Data reviewed: lab test result(s), EKG, radiologic studies. sd2 02:33 Consideration of Admission/Observation Patient was admitted/placed on observation. sd2 Management of patient was discussed with the following: Hospitalist: KRISTINA Aquino. I considered the following discharge prescriptions or medication management in the emergency department Medications were administered in the Emergency Department. See MAR. Historians other than the Patient: EMS: provide HPI. Care significantly affected by the following chronic conditions: Hypertension, CVA. Counseling: I had a detailed discussion with the patient and/or guardian regarding:. Response to treatment: the patient's symptoms have markedly improved after treatment. 02:37 ED course: Sepsis reassessment completed. 01/04 01:42 Order name: Blood Culture Adult (2) 01/04 01:42 Order name: CBC with Diff; Complete Time: 03:08 01/04 01:42 Order name: CMP 01/04 01:42 Order name: Lactate w/ 2H reflex if indic.; Complete Time: 04:23 sd01/04 01:42 Order name: Protime (+inr); Complete Time: 02:33 sd01/04 01:42 Order name: Ptt, Activated; Complete Time: 02:33 01/04 01:42 Order name: Urine Microscopic Only; Complete Time: 02:57 01/04 01:42 Order name: ABG; Complete Time: 02:33 01/04 01:42 Order name: Troponin High Sensitivity 01/04 01:42 Order name: BNP 01/04 01:42 Order name: Procalcitonin; Complete Time: 03:18 sd01/04 01:45 Order name: COVID-19/FLU A+B; Complete Time: 04:23 la1 01/04 02:11 Order name: Glucose, Ancillary Testing; Complete Time: 02:33 EDMS 01/04 02:28 Order name: Urine Dipstick-Ancillary; Complete Time: 02:33 EDMS 01/04 01:42 Order name: Chest Single View XRAY 01/04 01:42 Order name: EKG; Complete Time: 01:42 sd01/04 01:42 Order name: Accucheck; Complete Time: 02:07 01/04 01:42 Order name: Cardiac monitoring; Complete Time: 01:54 sd01/04 01:42 Order name: EKG - Nurse/Tech; Complete Time: 01:54 01/04 01:42 Order name: IV Saline Lock - Large Bore; Complete Time: 01:54 sd01/04 01:42 Order name: Labs collected and sent; Complete Time: 02:57 sd01/04 01:42 Order name: O2 Per Protocol; Complete Time: 01:54 sd2 01/04 01:42 Order name: O2 Sat Monitoring; Complete Time: 01:54 sd2 01/04 01:42 Order name: Urine Dipstick-Ancillary (obtain specimen); Complete Time: 02:26 sd2 01/04 02:34 Order name: Manual Differential; Complete Time: 03:08 EDMS 01/04 02:59 Order name: Chest Wo Con CT la1 01/04 03:07 Order name: Head Brain Wo Cont CT la1 01/04 01:42 Order name: Vital Signs; Complete Time: 01:54 sd2 Administered Medications: 01:53 Drug: Acetaminophen Suppository 650 mg Route: CA; as6 04:36 Follow up: Response: No adverse reaction; Temperature is decreased as6 01:53 Drug: NS 0.9% (30 ml/kg) 30 ml/kg Route: IV; Rate: bolus; Site: right hand; as6 04:36 Follow up: Response: No adverse reaction; IV Status: Completed infusion; IV Intake: as6 2735.1ml 03:03 Drug: Zosyn (piperacillin-tazobactam) 4.5 grams Route: IVPB; Infused Over: 60 mins; as6 Site: left jugular; 04:36 Follow up: Response: No adverse reaction; IV Status: Completed infusion; IV Intake: as6 100ml Disposition Summary: 01/04/23 02:36 Hospitalization Ordered Hospitalization Status: Inpatient Admission sd2 Provider: Lion Tracey sd2 Condition: Stable sd2 Problem: new sd2 Symptoms: have improved sd2 Bed/Room Type: [facility] Location: Telemetry/MedSurg (Inpatient)(01/04/23 04:17) Room Assignment: [facility](01/04/23 04:17) Diagnosis - Severe sepsis with septic shock sd2 - Aspiration event sd2 - Acute respiratory failure with hypoxia sd2 Forms: - Medication Reconciliation Form sd2 - SBAR form sd2 Critical care time excluding procedures: 02:33 Critical care time: Bedside Care: 20 minutes, Consultation: 10 minutes. Total time: 30 sd2 minutes Signatures: Dispatcher MedHo EDTN Ankit Esquivel FNP-C FNP-Cla1 Shayla Zaldivar RN RN Nagi Cartwright RN RN as6 Mile Castellano RN RN ke1 Luma Howard MD MD sd2 Corrections: (The following items were deleted from the chart) : 02:36 Intensive Care Unit sd2 cg 02:36 sd2 cg
[2023-01-04 02:44] LABS: Urine Bacteria <20 /HPF (<20); Urine Mucus 4+ /HPF (None Seen); Urine RBC >50 /HPF (None Seen)
[2023-01-04] MEDS ORDERED: NA CHLORIDE 0.9% 100 ML ONE (02:44)
[2023-01-04] MEDS ORDERED: PIPERACIL/TAZO 4.5 GM VIAL IV ONE (02:44)
[2023-01-04 02:57] LABS: Anisocytosis 1+; Blood Morphology Comment NOTED (NOT SEEN); Platelet Estimate DECR
[2023-01-04 02:59] LABS: Albumin 2.6 g/dL (3.4-5.0); Bilirubin Total 0.5 mg/dL (0.2-1.0); Protein, Total 6.3 g/dL (6.4-8.2); Troponin High Sensitivity 15.5 pg/mL (<58.9)
[2023-01-04 03:00] LABS: Potassium 3.6 mmol/L (3.5-5.1)
[2023-01-04 03:49] LABS: SARS-COV-2 RT PCR NEGATIVE (NEGATIVE)
--- NOTE | 2023-01-04 03:58 | P.HP ---
Certification for Inpatient Patient admitted to: Inpatient With expected LOS: >2 Midnights Patient will require the following post-hospital care: None Practitioner: I am a practitioner with admitting privileges, knowledge of patient current condition, hospital course, and medical plan of care. Services: Services provided to patient in accordance with Admission requirements found in Title 42 Section 412.3 of the Code of Federal Regulations <Ankit Esquivel - Last Filed: 01/04/23 07:32> Patient History Date of Service: 01/04/23 Reason for admission: Severe sepsis, pneumonia History of Present Illness: 62-year-old male with history of previous CVA resulting in left-sided hemiplegia, dementia, hypertension who is a resident of [facility] for the past 7 years was brought into the emergency department with concern for aspiration/pneumonia. Family who is at bedside currently reports over the last 24 hours he had not been acting himself, more lethargic than normal, nursing staff from [facility] called them and reported that they found him lying in bed "frothing" from his mouth low blood pressure, he was referred to the emergency department for evaluation. Patient was febrile, tachycardic and hypoxic upon arrival to the ED, code sepsis was called. His labs were significant for bandemia with 11% bands procalcitonin 1.01 urinalysis negative for UTI ABG was performed which was unremarkable, patient's room air sats were in the 70s. He is tolerating BiPAP well at this time he was given IV Zosyn in the ED, his chest x-ray was negative for any acute findings, CT of the chest contrast is ordered and pending. 1 blood pressure reading with MAP less than 60 but improved with IV fluids, does not meet criteria for septic shock at this time. - Past Medical/Surgical History Diabetic: No -: CVA with left-sided hemiplegia -: Hypertension -: dementia -: None Psychosocial/ Personal History: Resident of [facility] - Family History Father -: Stroke - Social History Smoking Status: Former smoker Alcohol use: Yes CD- Drugs: No Caffeine use: Yes Place of Residence: Home <Ankit Esquivel - Last Filed: 01/04/23 07:32> Date of Service: 01/04/23 <Lion Tracey - Last Filed: 01/04/23 17:21> Allergies No Known Allergies Allergy (Unverified 02/19/17 16:14) Home Medications: Bisoprolol Fumarate/Hctz [Ziac 5-6.25 mg Tablet] 1 each PO DAILY 01/26/12 Carvedilol [Coreg] 12.5 mg PO BID #0 tablet 01/29/12 Clonidine HCl 0.1 mg PO BID #0 tablet 01/29/12 Review of Systems is unable to be obtained <Ankit Esquivel - Last Filed: 01/04/23 07:32> Physical Examination - Physical Exam General: Alert, In no apparent distress, Oriented x3 HEENT: Atraumatic, PERRLA, Mucous membr. moist/pink, EOMI, Sclerae nonicteric Neck: Supple, 2+ carotid pulse no bruit, No LAD, Without JVD or thyroid abnormality Respiratory: Diminished, Rhonchi/gurgles Cardiovascular: No edema, Regular rate/rhythm, Normal S1 S2 Capillary refill: <2 Seconds Gastrointestinal: Normal bowel sounds, No tenderness Musculoskeletal: No tenderness Integumentary: No rashes Neurological: Abnormal speech (Speech slowed, slurred. At baseline per family.) Lymphatics: No axilla or inguinal lymphadenopathy - Studies Laboratory Data (last 24 hrs) 01/04/23 02:15: PT 13.6 H, INR 1.24, APTT 25.8 01/04/23 02:15: Sodium 139, Potassium 3.6, BUN 20 H, Creatinine 1.18, Glucose 136 H, Total Bilirubin 0.5, AST 15, ALT 19, Alkaline Phosphatase 52 01/04/23 02:15: WBC 5.40, Hgb 14.2, Hct 42.8, Plt Count 175 <Ankit Esquivel - Last Filed: 01/04/23 07:32> - Studies Laboratory Data (last 24 hrs) 01/04/23 02:15: PT 13.6 H, INR 1.24, APTT 25.8 01/04/23 02:15: Sodium 139, Potassium 3.6, BUN 20 H, Creatinine 1.18, Glucose 136 H, Magnesium 1.8, Total Bilirubin 0.5, AST 15, ALT 19, Alkaline Phosphatase 52 01/04/23 02:15: WBC 5.40, Hgb 14.2, Hct 42.8, Plt Count 175 <Lion Tracey - Last Filed: 01/04/23 17:21> Assessment and Plan - Plan Assessment: Severe sepsis secondary to suspected aspiration pneumonia Acute hypoxic respiratory failure related to above History of CVA with left-sided hemiplegia Dementia Plan: Severe sepsis secondary to suspected aspiration pneumonia SIRS criteria present including tachycardia, tachypnea, fever. Meets criteria for severe sepsis given need for BiPAP. N.p.o. as there is suspected aspiration, speech therapy consult in place. Currently on IV Zosyn. Tolerating BiPAP well at this time. Initial BP low but improving with IV fluids, no septic shock at this time. Lactic acid within normal limits. Acute hypoxic respiratory failure related to above Continue as above, wean off BiPAP. History of CVA with left-sided hemiplegia Dementia At Baseline DVT PPX: Lovenox Code status:Full Discharge Plan: Intermediate Plan to discharge in: Greater than 2 days - Advance Directives Does patient have a Living Will: No Does patient have a Durable POA for Healthcare: No - Code Status/Comfort Care Code Status Assessed: Yes (Full code) Critical Care: No Time Spent Managing Pts Care (In Minutes): 70 <Ankit Esquivel - Last Filed: 01/04/23 07:32> - Plan Patient seen and examined on rounds this morning Improving, oxygen supplementation decreasing Vitals improving Continue antibiotics, speech therapy, pulmonology consulted <Lion Tracey - Last Filed: 01/04/23 17:21>
[2023-01-04] MEDS ORDERED: ALBUTEROL 2.5 MG/3 ML NEB SOL NEB PRN (05:29)
[2023-01-04] MEDS ORDERED: ONDANSETRON 4 MG/2 ML VIAL IV PRN (05:29)
[2023-01-04] MEDS ORDERED: ACETAMINOPHEN 650MG/RECT SUPP PR PRN (05:29)
[2023-01-04] MEDS: Ringers Lactate 1,000 ML IV SCH ×2 (06:20→16:24)
[2023-01-04 06:30] LABS: Magnesium 1.8 mg/dL (1.6-2.4)
[2023-01-04] MEDS ORDERED: KCL 20 MEQ/100 mL IVPB 20 MEQ/100 ML BAG IV SCH (09:00)
[2023-01-04] MEDS ORDERED: MAGNESIUM SULFATE 1 gm IVPB 1 GM/100 ML BAG IV ONE (09:00)
[2023-01-04] MEDS: ENOXAPARIN 40 MG/0.4 ML SQ SCH (10:23)
[2023-01-04] MEDS: PIPER TAZO 3.375 GM in NA CHLORIDE 0.9% 100 ML IV SCH ×2 (11:41→16:24)
[2023-01-04 16:29] LABS: Specific Gravity > 1.030 (1.005-1.030); Urine Bacteria None Seen /HPF (<20); Urine Bilirubin NEGATIVE (Negative); Urine Blood 3+ (Negative); Urine Clarity Turbid (Clear); Urine Color Yellow (Yellow); Urine Glucose NEGATIVE (Negative); Urine Mucus Slight /HPF (None Seen); Urine Protein 1+ (Negative); Urine RBC >50 /HPF (None Seen); Urine Urobilinogen 2+ (Normal)
[2023-01-05] MEDS: PIPER TAZO 3.375 GM in NA CHLORIDE 0.9% 100 ML IV SCH ×3 (00:43→17:08)
[2023-01-05] MEDS: Ringers Lactate 1,000 ML IV SCH ×3 (00:44→20:18)
[2023-01-05 03:41] LABS: Absolute Lymphocytes (CBC) 1.6 K/uL (0.7-4.9); Hematocrit 35.9 % (39.6-49.0); Lymphocytes % 18.9 % (15.3-44.8); MCV 93.2 fL (80-100); MPV 9.2 fL (7.6-11.3); RBC Red Blood Cell Count 3.85 M/uL (4.33-5.43)
[2023-01-05 04:08] LABS: Magnesium 2.2 mg/dL (1.6-2.4); Potassium 3.6 mmol/L (3.5-5.1)
[2023-01-05 04:34] VITALS: BMI 33.4
[2023-01-05] MEDS ORDERED: KCL 20 MEQ/100 mL IVPB 20 MEQ/100 ML BAG IV SCH ×2 (09:00→12:00)
[2023-01-05] MEDS: ENOXAPARIN 40 MG/0.4 ML SQ SCH (09:03)
--- NOTE | 2023-01-05 09:23 | RAD REPORT ---
EXAM DESCRIPTION: RAD - Chest Single View - 01/05/2023 7:07 am CLINICAL HISTORY: f/u pneumonia Chest pain. COMPARISON: Chest Single View dated 01/04/2023; Chest Single View dated 02/19/2017; CHEST PA AND LAT 2 VIEW dated 01/26/2012 FINDINGS: Portable technique limits examination quality. Bilateral pulmonary opacities are present, mildly progressive since the comparative study and greater on the right. The heart is mildly prominent in size. No displaced fractures. IMPRESSION: Slight worsening in lung aeration seen since yesterday's study.
--- NOTE | 2023-01-05 12:13 | P.CNS ---
Date of Consult: 01/05/23 Chief Complaint: Severe sepsis, pneumonia History of Present Illness: Patient is 62 years of age with a previous history of stroke hemiplegia dementia [facility] resident mated with altered mental status and is nonverbal his blood pressure was low and he was febrile tachycardic hypoxic responsive Allergies No Known Allergies Allergy (Unverified 02/19/17 16:14) Home Medications: Bisoprolol Fumarate/Hctz [Ziac 5-6.25 mg Tablet] 1 each PO DAILY 01/26/12 Carvedilol [Coreg] 12.5 mg PO BID #0 tablet 01/29/12 Clonidine HCl 0.1 mg PO BID #0 tablet 01/29/12 - Past Medical/Surgical History Diabetic: No -: CVA with left-sided hemiplegia -: Hypertension -: dementia -: None Psychosocial/ Personal History: Resident of [facility] - Family History Father Medical History: Stroke - Social History Smoking Status: Unknown if ever smoked Alcohol use: Yes CD- Drugs: No Caffeine use: Yes Place of Residence: Home Review of Systems is unable to be obtained Physical Examination Temp Pulse Resp BP Pulse Ox 96.6 F L 68 18 150/61 H 95 01/05/23 08:00 01/05/23 08:00 01/05/23 08:00 01/05/23 08:00 01/05/23 08:00 General: Alert, Unresponsive Respiratory: Clear to auscultation bilaterally, Diminished Cardiovascular: Edema Gastrointestinal: Normal bowel sounds, Soft and benign - Problems (1) Altered mental status Current Visit: Yes Status: Acute Plan: Patient is 62 years of age custodial resident admitted with altered mental status he has dementia history of stroke patient will infiltrate in his lungs CT scan reviewed procalcitonin is mildly elevated chemistries reviewed his white count is normal initially admitted with significant hypoxemia saturation now satisfactory patient was taking a number of blood pressure pills at home was also febrile on admission chest x-ray shows mild worsening continue with Zosyn blood cultures are negative so far Qualifiers: Altered mental status type: unspecified Qualified Code(s): R41.82 - Altered mental status, unspecified
[2023-01-05] MEDS ORDERED: ALBUTEROL 2.5 MG/3 ML NEB SOL NEB PRN (13:00)
--- NOTE | 2023-01-05 13:53 | RAD REPORT ---
EXAM DESCRIPTION: RAD - Chest Single View - 01/04/2023 2:03 am CLINICAL HISTORY: 62 years, Male, SOB COMPARISON: None. FINDINGS: Single view of the chest was obtained portable. No prior films are available for compariso n. Day lung volume is decreased. Elevation of the right hemidiaphragm. External EKG leads within the [id number] limits diagnosis. The cardiomediastinal silhouette demonstrate to be unremarkable. The heart is not enlarged. The thoracic aorta is unremarkable. The pulmonary vasculature is normal distri bution. Costophrenic angles are sharp. No areas of consolidation or masses are seen. The rest of the soft tissue and bony structures demonstrate to be unremarkable. IMPRESSION: No acute cardiopulmonary disease seen. Electronically signed by: Ernie Matthews MD 01/04/2023 2:15 AM ARCHITECTURAL MODELER Due to temporary technical issues with the PACS/Fluency reporting system, reports are being signed by the in house radiologists without review as a courtesy to insure prompt reporting. The interpreting radiologist is fully responsible for the content of the report.
--- NOTE | 2023-01-05 13:54 | RAD REPORT ---
EXAM DESCRIPTION: CT - Thorax Tristin Abrams - 01/04/2023 6:39 am CLINICAL HISTORY: The patient is 62 years old and is Male; Dyspnea, hypoxia, fever, CXR negative TECHNIQUE: Axial computed tomography images of the chest without intravenous contrast. Sagittal an d coronal reformatted images were created and reviewed. This CT exam was performed using one or mor e of the following dose reduction techniques: automated exposure control, adjustment of the mA and/ or kV according to patient size, and/or use of iterative reconstruction technique. COMPARISON: No relevant prior studies available. FINDINGS: Lungs: Medial left lower lobe atelectasis or infiltrate. Right middle lobe segmental atelectasis. Pleural space: Unremarkable. No pleural effusion or pneumothorax. Heart: Borderline cardiac enlargement. No significant pericardial effusion. No significant coronary artery calcifications. Mediastinum: Unremarkable. No pneumomediastinum. Bones/joints: No thoracic compression fracture. Multilevel vertebral Schmorl's nodes. Lateral al ignment is maintained. No acute rib fracture visualized. Soft tissues: Unremarkable. Vasculature: Unremarkable. No thoracic aortic aneurysm. Lymph nodes: No pathologically enlarged lymph nodes. Upper abdomen: Elevated right hemidiaphragm. IMPRESSION: 1. Medial left lower lobe atelectasis and/or infiltrate. 2. Right middle lobe segmental atelectasis. Electronically signed by: Luma Johnson MD 01/04/2023 4:25 AM WINDOWS SERVER ENGINEER Due to temporary technical issues with the PACS/Fluency reporting system, reports are being signed by the in house radiologists without review as a courtesy to insure prompt reporting. The interpreting radiologist is fully responsible for the content of the report.
--- NOTE | 2023-01-05 13:57 | RAD REPORT ---
EXAM DESCRIPTION: CT - Head Brain Wo Cont - 01/04/2023 6:38 am CLINICAL HISTORY: The patient is 62 years old and is Male; Mental status change, unknown cause TECHNIQUE: Axial computed tomography images of the head/brain without intravenous contrast. Sagitt al and coronal reformatted images were created and reviewed. This CT exam was performed using one o r more of the following dose reduction techniques: automated exposure control, adjustment of the mA and/or kV according to patient size, and/or use of iterative reconstruction technique. COMPARISON: No relevant prior studies available. FINDINGS: Brain: Moderate age related periventricular white matter microangiopathic changes. Chron ic lacunar infarcts in the thalami bilaterally. No hemorrhage. Ventricles: Within normal limits for age and the degree of atrophy. No ventriculomegaly. Bones/joints: Unremarkable. No acute skull fracture. Soft tissues: Unremarkable. Sinuses: Unremarkable as visualized. No acute sinusitis. Mastoid air cells: No significant mastoid fluid. Dental: Multiple dental caries. IMPRESSION: 1. No acute intracranial findings. No hemorrhage. 2. Moderate age related periventricular white matter microangiopathic changes. Chronic lacunar infa rcts in the thalami bilaterally. Electronically signed by: Luma Johnson MD 01/04/2023 4:29 AM RESOURCE PROGRAM TEACHER Due to temporary technical issues with the PACS/Fluency reporting system, reports are being signed by the in house radiologists without review as a courtesy to insure prompt reporting. The interpreting radiologist is fully responsible for the content of the report.
--- NOTE | 2023-01-05 16:02 | RAD REPORT ---
EXAM DESCRIPTION: RAD - Barium Swallow Modified - 01/05/2023 3:52 pm CLINICAL HISTORY: /pneumonia FINDINGS: Trials of thin, nectar, pudding, soft solid, hard solid. Laryngeal penetration: Cleared, thin via cup with 2 sec swallow delay Pharyngeal residue: Vallecular, pyriform - regular Pharyngeal residue cleared with second swallow. Fluoroscopy time 2.4 minutes. Seventeen fluoroscopic spot series obtained
--- NOTE | 2023-01-05 23:18 | P.PN ---
Date of Service: 01/05/23 Subjective: improving, responsive, alert reports pain with urinating - has arenas ROS: 10 point ROS as noted above, otherwise negative Physical exam GEN: Alert, oriented, NAD HEENT: Normal conjunctiva, sclera anicteric CV: Regular rate and rhythm, no edema Pulm: non-labored respirations, diminished bilaterally ABD: Soft, nontender, nondistended MSK: No joint tenderness Problem List Severe sepsis secondary to suspected aspiration pneumonia Acute hypoxic respiratory failure related to above History of CVA with left-sided hemiplegia Dementia Severe sepsis secondary to suspected aspiration pneumonia SIRS criteria present including tachycardia, tachypnea, fever. Meets criteria for severe sepsis given need for BiPAP. N.p.o. as there is suspected aspiration, speech therapy consult in place. Currently on IV Zosyn. Tolerating BiPAP well at this time. Initial BP low but improving with IV fluids, no septic shock at this time. Lactic acid within normal limits. speech consulted, to see patient today Acute hypoxic respiratory failure related to above Continue as above, wean off O2 History of CVA with left-sided hemiplegia Dementia At Baseline VTE: Lovenox Code:Full Dispo: assisted, ~2 days
[2023-01-06] MEDS: PIPER TAZO 3.375 GM in NA CHLORIDE 0.9% 100 ML IV SCH ×2 (00:41→08:02)
[2023-01-06 04:06] LABS: Potassium 3.7 mmol/L (3.5-5.1)
[2023-01-06 04:07] LABS: Absolute Lymphocytes (CBC) 1.6 K/uL (0.7-4.9); Lymphocytes % 20.8 % (15.3-44.8); MCV 91.2 fL (80-100); MPV 9.1 fL (7.6-11.3); RBC Red Blood Cell Count 4.17 M/uL (4.33-5.43)
[2023-01-06] MEDS ORDERED: KCL 20 MEQ/100 mL IVPB 20 MEQ/100 ML BAG IV SCH (06:00)
[2023-01-06] MEDS: Ringers Lactate 1,000 ML IV SCH (06:28)
[2023-01-06] MEDS: ENOXAPARIN 40 MG/0.4 ML SQ SCH (08:04)
--- NOTE | 2023-01-06 11:55 | P.PN ---
Subjective Date of Service: 01/06/23 Chief Complaint: Severe sepsis, Subjective: Improving (Patient is doing well no new complaints was eating his breakfast by himself this morning) Review of Systems is unable to be obtained Physical Examination - Vital Signs Temperature: 97.1 F Blood Pressure: 151/80 Pulse: 53 Respirations: 16 Pulse Ox (%): 98 - Physical Exam General: Alert, Cooperative Neck: Supple Respiratory: Clear to auscultation bilaterally, Diminished Assessment And Plan - Current Problems (Diagnosis) (1) Altered mental status Current Visit: Yes Status: Acute Plan: Patient admitted with altered mental status evidence of sepsis that he was febrile initially recommend changed to Augmentin p.o. patient is eating and drinking cultures are negative oxygenation blood pressure satisfactory and to discharged back to the assisted on Augmentin Qualifiers: Altered mental status type: unspecified Qualified Code(s): R41.82 - Altered mental status, unspecified
--- NOTE | 2023-01-06 15:16 | P.PN ---
Subjective Date of Service: 01/06/23 Chief Complaint: Severe sepsis, Patient has no new complain. He was fed with assistance and he ate 75% of his breakfast. Physical Examination - Vital Signs Temperature: 97.1 F Blood Pressure: 151/80 Pulse: 53 Respirations: 16 Pulse Ox (%): 98 Assessment And Plan - Plan Physical exam GEN: Alert, oriented, NAD HEENT: Normal conjunctiva, sclera anicteric CV: Regular rate and rhythm, no edema Pulm: non-labored respirations, diminished bilaterally ABD: Soft, nontender, nondistended MSK: No joint tenderness Problem List Severe sepsis secondary to suspected aspiration pneumonia Acute hypoxic respiratory failure related to above History of CVA with left-sided hemiplegia Dementia Plan Severe sepsis secondary to suspected aspiration pneumonia SIRS criteria present including tachycardia, tachypnea, fever. Meets criteria for severe sepsis given need for BiPAP. Patient seen by speech, MBS done and mechanical soft and thin liquids recommended. Patient tolerated his diet. Blood cultures: No growth. Patient seen by pulmonary. IV Zosyn changed to oral Augmentin. He is stable on oxygen by nasal cannula. Patient is hypertensive today Sepsis resolved. Acute hypoxic respiratory failure related to above Oxygen saturations 100% on 4 L by nasal cannula Wean off oxygen. History of CVA with left-sided hemiplegia Dementia At Baseline. Continue home medications. VTE: Lovenox Code:Full Dispo: [facility] in a.m.
[2023-01-06] MEDS: AMOX/K CLAV 500 MG TAB PO SCH (20:55)
[2023-01-07 04:43] LABS: SARS-COV-2 RT PCR NEGATIVE (NEGATIVE)
[2023-01-07 06:30] LABS: Absolute Lymphocytes (CBC) 1.7 K/uL (0.7-4.9); Hematocrit 33.6 % (39.6-49.0); Lymphocytes % 18.7 % (15.3-44.8); MCV 90.3 fL (80-100); MPV 8.7 fL (7.6-11.3); RBC Red Blood Cell Count 3.73 M/uL (4.33-5.43)
[2023-01-07 06:42] LABS: Magnesium 1.8 mg/dL (1.6-2.4); Potassium 3.4 mmol/L (3.5-5.1)
[2023-01-07 07:30] LABS: Blood Morphology Comment NOT SEEN (NOT SEEN); Platelet Estimate ADEQ
[2023-01-07] MEDS: ENOXAPARIN 40 MG/0.4 ML SQ SCH (08:40)
[2023-01-07] MEDS: AMOX/K CLAV 500 MG TAB PO SCH (08:41)
[2023-01-07] MEDS ORDERED: POTASSIUM 25 MEQ EFFERV TAB PO ONE (09:00)
[2023-01-07] MEDS ORDERED: MAGNESIUM SULFATE 1 gm IVPB 1 GM/100 ML BAG IV ONE (09:00)
[2023-01-07 09:09] VITALS: O2SAT 92
--- NOTE | 2023-01-07 09:11 | P.DS ---
Admission Date: 01/04/23 Discharge Date: 01/07/23 Disposition: TRANSFER TO PRISON Discharge Condition: FAIR Reason for Admission: Severe sepsis, Brief History of Present Illness: 62-year-old male with history of previous CVA resulting in left-sided hemiplegia, dementia, hypertension who is a resident of [facility] for the past 7 years was brought into the emergency department with concern for aspiration/pneumonia. Family was not acting himself, more lethargic than normal. There is a report shelter staff found him lying in bed "frothing" from his mouth and had low blood pressure. He was referred to the emergency department for evaluation. Patient was febrile, tachycardic and hypoxic upon arrival to the ED, code sepsis was called. His labs were significant for bandemia with 11% bands procalcitonin 1.01 urinalysis negative for UTI ABG was performed which was unremarkable. Patient's room air sats were in the 70s. He was placed on BiPAP and given IV Zosyn in the ED. His chest x-ray was negative for any acute findings. 1 blood pressure reading with MAP less than 60 but improved with IV fluids,. Patient was admitted for further management. Hospital Course: Diagnosis Severe sepsis secondary to suspected aspiration pneumonia Acute hypoxic respiratory failure related to above History of CVA with left-sided hemiplegia Dementia Patient admitted to the medical floor and the following medical problems addressed: Severe sepsis secondary to suspected aspiration pneumonia SIRS criteria was present including tachycardia, tachypnea, fever. He met criteria for severe sepsis given need for BiPAP. Aspiration pneumonia suspected Patient seen by speech, MBS done and mechanical soft and thin liquids recommended. Patient tolerated his diet. Blood cultures: No growth. Patient treated with IV Zosyn Patient seen by pulmonary. IV Zosyn later changed to oral Augmentin. He was subsequently weaned off oxygen to room air Blood pressure improving patient came hypertensive Sepsis resolved. Acute hypoxic respiratory failure related to above Patient was subsequently weaned off oxygen to room air History of CVA with left-sided hemiplegia Dementia Currently baseline. Continued home medications. Patient has clinically improved and deemed stable for discharge. He is prescribed oral Augmentin to continue treatment for aspiration pneumonia. Vital Signs/Physical Exam: Temp Pulse Resp BP Pulse Ox 97.4 F 60 18 153/75 H 94 01/07/23 08:00 01/07/23 08:00 01/07/23 08:00 01/07/23 08:00 01/07/23 08:00 General: In no apparent distress, Oriented x2 HEENT: Mucous membr. moist/pink Neck: JVD not distended Respiratory: Clear to auscultation bilaterally, Normal air movement Cardiovascular: No edema, Regular rate/rhythm, Normal S1 S2 Gastrointestinal: Soft and benign, Non-distended Musculoskeletal: No swelling Integumentary: No cyanosis Laboratory Data at Discharge: WBC 8.90 K/uL (4.3-10.9) 01/07/23 06:04 Hgb 11.6 g/dL (13.6-17.9) L D 01/07/23 06:04 Hct 33.6 % (39.6-49.0) L 01/07/23 06:04 Plt Count 191 K/uL (152-406) 01/07/23 06:04 PT 13.6 SECONDS (9.5-12.5) H 01/04/23 02:15 INR 1.24 01/04/23 02:15 APTT 25.8 SECONDS (24.3-36.9) 01/04/23 02:15 Sodium 138 mmol/L (136-145) 01/07/23 06:04 Potassium 3.4 mmol/L (3.5-5.1) L 01/07/23 06:04 BUN 14 mg/dL (7-18) 01/07/23 06:04 Creatinine 0.69 mg/dL (0.70-1.30) L 01/07/23 06:04 Glucose 91 mg/dL (74-106) 01/07/23 06:04 Magnesium 1.8 mg/dL (1.6-2.4) 01/07/23 06:04 Total Bilirubin 0.5 mg/dL (0.2-1.0) 01/04/23 02:15 AST 15 U/L (15-37) 01/04/23 02:15 ALT 19 U/L (16-61) 01/04/23 02:15 Alkaline Phosphatase 52 U/L (45-117) 01/04/23 02:15 Home Medications: Bisoprolol Fumarate/Hctz [Ziac 5-6.25 mg Tablet] 1 each PO DAILY 01/26/12 Amox/Clavulanate [Augmentin 500-125 mg Tab*] 500 mg PO BID #14 tab 01/07/23 Ipratropium/Albuterol Sulfate [Iprat-Albut 0.5-3(2.5) mg/3 ml] 3 ml IH Q6H PRN #120 vial 01/07/23 New Medications: Amox/Clavulanate [Augmentin 500-125 mg Tab*] 500 mg PO BID #14 tab Ipratropium/Albuterol Sulfate [Iprat-Albut 0.5-3(2.5) mg/3 ml] 3 ml IH Q6H PRN #120 vial PRN Reason: Wheezing Physician Discharge Instructions: PROBLEM: Pneumonia GOAL: Clear understanding of disease process INSTRUCTIONS: Ok to return to nursing facility Take new medications as prescribed Contact physician or return to ER for any complications or concerns Call [phone] for any questions regarding hospital stay Diet: Mechanical soft diet, thin liquids Activity: As tolerated [employer] Services Needed: Detention Name of Company: [facility] [phone] Date or Referral: IMMUNIZATION Influenza Vaccine Indicated: No Influenza Vaccine Given: Date Given: Pneumonia Vaccine Indicated: No Pneumonia Vaccine Given: Date Given: Diet: AHA Followup: Cielo Zapata MD [Primary Care Provider] - 1 Week Time spent managing pt's care (in minutes): 34
[2023-01-07 12:21] VITALS: BP 152/76; TEMP 97.1
--- NOTE | 2023-01-13 17:42 | EKG ---
Test Date: 2023-01-04 Test Time: 01:47:32 Control Room Technician: EDEN MEASUREMENT RESULTS: Intervals: Rate: 108 HI: 136 QRSD: 134 QT: 378 QTc: 506 [place]: P: 11 HI: 136 QRS: -78 T: 71 INTERPRETIVE STATEMENTS: Sinus tachycardia Right bundle branch block Left anterior fascicular block Bifascicular block Left ventricular hypertrophy with repolarization abnormality Abnormal ECG Compared to ECG 02/19/2017 07:28:49 Left ventricular hypertrophy now present Early repolarization now present Sinus rhythm no longer present Bifascicular block still present Electronically Signed On 01-13-23 17:24:52 [employer] by Ariel Chavez
== END 2023-01-07 16:32 | DRG 871 ==
LOC: ER 01:34 → 4TH 03:43
PROVIDERS: ADMIT Hospitalist; ATTEND Internal Medicine
PROC: 5A09357 Assistance with Respiratory Ventilation, Less than 24 Consecutive Hours, Continuous Positive Airway Pressure (ICD-10-PCS; principal; 2023-01-04)
DX: A41.9 Sepsis, unspecified organism (principal); J69.0 Pneumonitis due to inhalation of food and vomit; J96.01 Acute respiratory failure with hypoxia; I69.354 Hemiplegia and hemiparesis following cerebral infarction affecting left non-dominant side; R65.20 Severe sepsis without septic shock; K21.9 Gastro-esophageal reflux disease without esophagitis; I10 Essential (primary) hypertension; F03.90 Unspecified dementia, unspecified severity, without behavioral disturbance, psychotic disturbance, mood disturbance, and anxiety; Z87.891 Personal history of nicotine dependence; Z79.899 Other long term (current) drug therapy; Z20.822 Contact with and (suspected) exposure to COVID-19
CPT/HCPCS: 0240U; 36415; 51702; 70450; 71045; 71250; 74230; 80048; 80053; 81001; 81003; 81015; 82805; 82947; 83605; 83735; 83880; 84132; 84145; 84484; 85025; 85610; 85730; 87040; 87086; 87088; 92526; 92610; 92611; 93005; 94660; 94760; 99285; J1650; J2543; J3475; J3480; J7030; J7120; J7613

== ENCOUNTER 2023-08-30 16:24 | Inpatient (IN) | payer OTHER ==
--- OUTSIDE RECORDS SUMMARY | 2023-08-30 16:30 | XMS REPORT | Continuity of Care Document ---
:1960 Author Organization [facility] t Address [address] [facility] [address] [place] [address] Care Team Providers Name Role Phone NONE, NONE Primary Care Physician Unavailable DR GALINA FELICIANO Attending Clinician Unavailable DR GALINA FELICIANO Attending Clinician Unavailable DR CHRISTY GOLDMAN Attending Clinician Unavailable DR CHRISTY GOLDMAN Attending Clinician Unavailable Wendy Ferguson Attending Clinician KIM SIDHU Attending Clinician Unavailable DR GALINA FELICIANO Admitting Clinician Unavailable DR CHRISTY GOLDMAN Admitting Clinician Unavailable KIM SIDHU Admitting Clinician Unavailable Payers Payer Name Policy Type Policy Number Effective Date Expiration Date S ource MEDICARE PART A [id number] 2016 \\T\\ B 00:00:00 [place]ID [place] [id number] 2016 00:00:00 0500 [id number] 2023 00:00:00 0700 [id number] 2023 00:00:00 Problems Condition Condition Condition Status Onset Resolution Last Treating Co mments Source Name Details Category Date Date Treatment Clinician Date Sigmoid Sigmoid Disease Active [facility] and 00:00: Medical Ischemia, Ischemia, 00 Cent er s/p s/p sigmoidect sigmoidect dave dave Acute Acute Disease Active [facility] ischemic ischemic 08-22 [facility] sigmoid sigmoid 00:00: Medical colon colon 00 Center No known No known Disease Unive rs active active ity of problems problems [facility] H/o CVA, H/o CVA, 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 of speech. Hypertensi Hypertensi Disease Recurre [facility] Allergies, Adverse Reactions, Alerts Allergy Allergy Status Severity Reaction(s) Onset Inactive Treating Comm ents Source Name Type Date Date Clinician ROBIN DRAKE Active Unknown [place] 08-25 Medical 00:00: Center 00 NO KNOWN Drug Active Univers ALLERGIE Class ity of S [facility] Family History Family Member Diagnosis Comments Start Date Stop Date Source Natural brother Hypertension [facility] Natural mother Hypertension [facility] Social History Social Habit Start Date Stop Date Quantity Comments Source Exposure to Not sure [facility]-CoV-2 [facility] (event) [place] Alcohol intake 2017-08-25 2017-08-25 Current drinker EDD samuel [facility] 00:[facility]:00 00:00:00 of alcohol [facility] (finding) Tobacco use and 2017-08-22 2017-08-[address] [facility] exposure 00:00:00 00:00:00 non-user [facility] Center Sex Assigned At [birth year] EDD Hernandezs 00:00:00 00:00:00 Medical Center Smoking Status Start Date Stop Date Source Never smoker [facility] Medications Ordered Filled Start Stop Current Ordering Indication Dosage Frequency Signature Comments Components Source Medication Medication Date Date Medication? Clinician (SIG) Name Name HYDROcodone 2020- No 1{tbl} 1 tablet, Univers -acetaminop 06-04 Oral, ity of hen (NORCO 04:15: 03:29 ONCE, 1 Faustino as 5) 5-325 mg 00 :00 dose, Mon Med ical tablet 1 06/03/21 at [place] tablet 2315, JULIET DULoxetine Yes 60mg QD Take [address] (CYMBALTA) 08-28 by mouth [facility] 60 MG 14:00: daily. Medical capsule Center amLODIPine 2017-0 Yes 10mg QD Take [address] (NORVASC) 08-28 by mouth [facility] 10 MG 14:00: daily. Medical tablet 06 Center hydrALAZINE Yes 50mg QD Take [address] [facility] (APRESOLINE 08-28 by mouth Luke s ) 50 MG 14:00: daily. Medical tablet 06 Center baclofen Yes 10mg Take [address] [facility] (LIORESAL) 08-28 by mouth [facility] 10 MG 14:00: every 6 Medical tablet 06 (six) Center hours as needed. ranitidine 2017 Yes 150mg QD Take [address] (ZANTAC) 08-28 mg by [facility] 150 MG 14:00: mouth [...] MG tablet 06 Center gabapentin Yes 300mg Q.[id number] Take [address] (NEURONTIN) 08-28 [id number] mg by L ukes 300 MG 14:00: 3D mouth 3 Medical capsule 06 (three) Center times daily. melatonin 3 2017 Yes 3mg QD Take [address] mg Tab 08-28 by mouth [facility] tablet 14:00: nightly. Medical 06 Center ondansetron 0 Yes 4mg Take [address] (ZOFRAN) 4 08-28 by mouth [facility] MG tablet 14:00: every 8 Medic al 06 (eight) Center hours as needed for Nausea. traMADol 0 Yes 50mg Take [address] [facility] (ULTRAM) 50 08-28 by mouth Luke s mg tablet 14:00: every 6 Medic al 06 (six) Center hours as needed for Pain. DULoxetine 2017 Yes 60mg QD Take [address] (CYMBALTA) 08-28 by mouth [facility] 60 MG 14:00: daily. Medical capsule 06 Center amLODIPine Yes 10mg QD Take [address] (NORVASC) 08-28 by mouth [facility] 10 MG 14:00: daily. Medical tablet 06 [place] hydrALAZINE Yes 50mg QD Take [address] [address] (APRESOLINE 08-28 by mouth Luke s ) 50 MG 14:00: daily. Medical tablet 06 Center baclofen Yes 10mg Take [address] [facility] [address] (LIORESAL) 08-28 by mouth [facility] 10 MG 14:00: every 6 Medical tablet 06 (six) Center hours as needed. ranitidine Yes 150mg QD Take [address] (ZANTAC) 08-28 mg by [facility] 150 MG 14:00: mouth Medical tablet 06 daily. [place] valproate Yes Q.5D Take by CHI S [...] 14:00: daily. Medic al MG tablet 06 [place] gabapentin Yes 300mg Q.[id number] Take [address] (NEURONTIN) 08-28 [id number] mg by L ukes 300 MG 14:00: 3D mouth 3 Medical capsule 06 (three) Center times daily. melatonin 3 Yes 3mg QD Take [address] mg Tab 08-28 by mouth [facility] tablet 14:00: nightly. Medical [address] [place] [address] ondansetron Yes 4mg Take [address] (ZOFRAN) 4 08-28 by mouth [facility] MG tablet 14:00: every 8 Medic al 06 (eight) Center hours as needed for Nausea. traMADol Yes 50mg Take [address] [facility] (ULTRAM) 50 08-28 by mouth Luke s mg tablet 14:00: every 6 Medic al 06 (six) Center hours as needed for Pain. DULoxetine Yes 60mg QD Take [address] (CYMBALTA) 08-28 by mouth [facility] 60 MG 14:00: daily. Medical capsule 06 Center amLODIPine Yes 10mg QD Take [address] (NORVASC) 08-28 by mouth [facility] 10 MG 14:00: daily. Medical tablet 06 [place] hydrALAZINE Yes 50mg QD Take [address] [address] (APRESOLINE 08-28 by mouth Luke s ) 50 MG 14:00: daily. Medical tablet 06 [place] baclofen Yes 10mg Take [address] [facility] [address] (LIORESAL) 08-28 by mouth [facility] 10 MG 14:00: every 6 Medical tablet 06 (six) Center hours as needed. ranitidine Yes 150mg QD Take [address] (ZANTAC) 08-28 mg by [facility] 150 MG 14:00: mouth Medical tablet 06 daily. [place] valproate Yes Q.5D Take by CHI S [...] 14:00: daily. Medic al MG tablet 06 [place] gabapentin Yes 300mg Q.[id number] Take [address] (NEURONTIN) 08-28 [id number] mg by L ukes 300 MG 14:00: 3D mouth 3 Medical capsule 06 (three) Center times daily. melatonin 3 Yes 3mg QD Take [address] mg Tab 08-28 by mouth [facility] tablet 14:00: nightly. Medical [address] [place] [address] ondansetron Yes 4mg Take [address] (ZOFRAN) 4 08-28 by mouth [facility] MG tablet 14:00: every 8 Medic al 06 (eight) Center hours as needed for Nausea. traMADol 2017 Yes 50mg Take [address] (ULTRAM) 50 9-29 by mouth Luke s mg tablet 14:00: every 6 Medic al 06 (six) Center hours as needed for Pain. multivitami 2017-0 Yes 10mL QD Take [address] n Liqd 9-29 mLs by [facility] 00:00: mouth Medical 00 daily. [place] multivitami 2017-0 Yes 10mL QD Take [address] n Liqd 9-29 mLs by [facility] 00:00: mouth Medical 00 daily. [place] multivitami 20170 Yes 10mL QD Take [address] n Liqd 9-29 mLs by [facility] 00:00: mouth Medical 00 daily. [place] acetaminoph Yes Take by Uni vers en 325 mg 4-12 mouth. ity of Cap 19:50: [address] Branch amLODIPine 2017 Yes 10mg Take 10 mg U nivers 10 mg 4-12 by mouth ity of tablet 19:50: daily. [address] Branch baclofen 10 Yes 10mg Take 10 mg Univers mg tablet 4-12 by mouth 3 ity of 19:50: (three) [place] [address] times [facility] daily. Branch Docusate Yes Take by Univer s Sodium 100 4-12 mouth. ity of mg tablet 19:50: [address] Branch DULoxetine Yes 60mg Take 60 mg U nivers (CYMBALTA) 4-12 by mouth ity o f 60 mg 19:50: daily. [place] capsule [address] [place] [address] Branch hydralAZINE 2017-0 Yes 100mg Take 100 U nivers 100 mg 4-12 mg by ity of tablet 19:50: mouth [place] [address] every 6 Medical (six) Branch hours. lactulose 2017-0 Yes 30mL Take 30 mL Un amando 10 gram/15 4-12 by mouth ity o f mL oral 19:50: daily. [place] solution [address] [place] [address] Branch lisinopril 2017-0 Yes 40mg Take 40 mg U nivers 40 mg 4-12 by mouth ity of tablet 19:50: daily. [address] Branch gabapentin 2017-0 Yes 100mg Take 100 Un amando 100 mg 4-12 mg by ity of capsule 19:50: mouth 3 [place] 37 (three) Medical times Branch daily. ranitidine 2017-0 Yes 150mg Take 150 Un amando 150 mg 4-12 mg by ity of tablet 19:50: mouth 2 [place] 37 (two) Medical times [place] daily. valproic 2016- Yes Take by [facility] s acid 3-27 mouth ity of (DEPAKENE) 19:15: every 8 [place] 250 mg/5 mL 54 (eight) Medic al solution hours. Branch Vital Signs Vital Name Observation Time Observation Value Comments Source Weight 2023-08-10 08:39:00 91.8 KG Height 2023-07-31 22:14:00 152.4 CM Weight 2023-07-31 22:14:00 75.9 KG Systolic blood 2021-06-04 05:01:00 139 mm[Hg] [facility] Diastolic blood 2021-06-04 05:01:00 73 mm[Hg] [facility] Heart rate 2021-06-04 05:01:00 64 /min [facility] Respiratory rate 2021-06-04 05:01:00 20 /min [facility] Oxygen saturation in 2021-06-04 05:01:00 95 /min [facility] Arterial blood by [facility] Pulse oximetry Branch Body temperature 2021-06-04 01:49:00 36.67 Alicia [facility] Body weight 2021-06-04 01:49:00 83.915 kg [facility] BMI 2021-06-04 01:49:00 30.79 kg/m2 [facility] Procedures Procedure Date / Time Performed Performing Clinician Sourc e XR FOOT 3+ VW RIGHT 2021-06-04 04:00:16 Wendy Solano [facility] [place] 2021-06-04 02:50:20 Wendy Solano [facility] MAXILLOFACIAL/MANDIBL Medical Br anch E WO CONTRAST NOTICE OF PRIVACY 2021-06-04 02:14:47 Doctor Unassigned, No [facility] CONSENT/REFUSAL FOR 2021-06-04 02:12:29 [facility] Name Medical Branch TREATMENT Encounters Start End Encounter Admission Attending Care Care Encounter Source Date/Time Date/Time Type Type Clinicians Facility Department ID 2023-08-13 Inpatient [facility] [id number] [facility] 14:18:50 [id number] [place] 2023-08-12 [facility] [id number] [place] 19:48:11 [id number] [place] 2021-09-30 Emergency [facility] [id number] Univers 06:07:20 ity [facility] 2023-07-30 2023-08-10 Inpatient E GALINA FELICIANO [facility] SCU 1 [id number] [facility] [place] 00:05:00 19:51:00 GALINA FELICIANO [facility] 2023-07-29 2023-07-29 Emergency E CHRISTY GOLDMAN [facility] ECC 4 [id number] [facility] [place] 16:37:00 16:37:00 CHRISTY GOLDMAN [id number] [facility] 2021-06-03 2021-06-04 [facility] [id number] [facility] 20:45:00 00:08:00 Wendy Goddard [id number] [facility] [id number] [facility] [id number] [address] Results Test Description Test Time Test Comments Results Result Comments Source VALPROIC ACID (DEPAKENE) 2023-08-07 11:06:00 Test Item Value Reference Range Interpretation Comme nts VALP ACID (test code = 95A) 63.0 ug/mL 50.0-100.0 URINE [id number] 08:11:00 Test Item Value Reference Range Interpretation Comments Culture Observations (test NO GROWTH (<1,000 code = COB1) CFU/ML) XR CHEST 1 [id number] [facility]:40[facility] : 1960 Sex: MEXAMINATION:XR CHEST 1 VIEWCLINICAL INDICATION:Male, 62 years old with COUGH;altered mental statusCOMPARISON: Chest radiograph dated 07/29/2023FINDINGS:Single view(s) of the chest submitted.Support Devices: None.Heart: Cardiac silhouette is stable in size.Mediastinum: Mediastinal contours are unchanged.Lungs: Pulmonary vascular congestion has increased from prior. There is chronic elevation of the right hemidiaphragm. No focal consolidation is seen.Pleura: No pleural effusion is identified. No pneumothorax is present.Bones: Visualized skeleton is normal.IMPRESSION:Increase in pulmonary vascular congestion.Electronically signed by: Erendira Quiroz MD 08/06/2023 7:40 PM CDT THYROID PANEL/SCREEN (TSH)2023-08-06 08:51:00 Test Item Value Reference Range Interpretation Comments TSH (test code = A57) 2.001 uIU/mL 0.550-4.780 VALPROIC ACID (DEPAKENE)2023-08-06 08:43:00 Test Item Value Reference Range Interpretation Comments VALP ACID (test code = 95A) 110.5 ug/mL 50.0-100.0 HH BASIC METABOLIC [id number] 08:16:00 Test Item Value Reference Range Interpretation Comments GLUCOSE (test code 120 mg/dL 75-100 H = 06D) SODIUM (test code 140 mmol/L 136-145 = 01A) POTASSIUM (test 3.9 mmol/L 3.6-5.1 code = 01B) CHLORIDE (test 103 mmol/L 98-107 code = 04A) CO2 (test code = 32 mmol/L 20-31 H 02A) ANION GAP (test 8.9 mmol/L code = ANG) BUN (test code = 27 mg/dL 9-23 H 05D) CREATININE (test 1.2 mg/dL 0.7-1.3 code = 03E) GFR (test code = 65 See_Comment L [Automated GFR) mL/min/1.73m\\S\\2 message] Th e system which generated this result transmit dennis reference range : >=90. The reference range was not used to interpret this result as normal/abnormal . GFR 75 See_Comment L [Automated MOLDOVAN (test mL/min/1.73m\\S\\2 message] The code = GFRAA) system which generated this result transmit dennis reference range : >=90. The reference range was not used to interpret this result as normal/abnormal . EGFR (test code = eGFR BY EGFR) CKD-EPI CALCULATION IS NOT RECOMMENDED FOR PATIENTS UNDER 18 YEARS OF AGE. BUN/CREA (test 23 12-20 H code = BCR) CALCIUM (test code 9.1 mg/dL 8.3-10.6 = 09D) CBC (INCLUDES AUTOMATED DIFFERENTIAL)2023-08-06 08:03:00 Test Item Value Reference Range Interpretation Comments WBC (test code = WBC) 10.4 10\\S\\3/uL 4.5-11.0 RBC (test code = RBC) 4.91 10\\S\\6/uL 4.20-5.60 HGB (test code = HBG) 14.6 g/dL 14.0-18.0 HCT (test code = HCT) 45.7 % 35.0-46.0 MCV (test code = MCV) 93.1 fL 80.0-94.0 MCH (test code = MCH) 29.7 pg 27.0-31.0 MCHC (test code = MCHC) 31.9 g/dL 32.0-36.0 L RDW (test code = RDW) 14.2 % 11.5-14.5 PLT (test code = PLT) 230 10\\S\\3/uL 130-400 MPV (test code = MPV) 10.9 fL 9.4-12.4 NEUTROP # (test code = NE#) 7.2 10\\S\\3/uL 2.0-8.0 LYMPH # (test code = LY#) 1.9 10\\S\\3/uL 1.2-4.0 MONOCYTE # (test code = MO#) 1.3 10\\S\\3/uL 0.0-1.1 H EOSINOPH # (test code = EO#) 0.0 10\\S\\3/uL 0.0-0.7 BASOPHIL # (test code = BA#) 0.0 10\\S\\3/uL 0.0-0.3 IG # (test code = IG#) 0.03 10\\S\\3/uL 0.00-0.06 NRBC # (test code = NRBC#) 0.00 10\\S\\3/uL 0.00-0.01 NEUTROPH % (test code = NE%) 69.0 % 35.0-73.0 LYMPH % (test code = LY%) 17.8 % 20.0-55.0 L MONO % (test code = MO%) 12.3 % 2.5-10.0 H EOSINOPH % (test code = EO%) 0.3 % 0.0-5.0 BASOPHIL % (test code = BA%) 0.3 % 0.0-2.0 IG % (test code = IG%) 0.3 % 0.0-0.8 NRBC% (test code = NRBC%) 0.0 % 0.0-0.2 MANDIFF (test code = MDIFF) NO NO RBC MORPH (test code = RBCMOR) NORMAL U/S VENOUS DOPPLER FABRICE LOW [id number] 17:23:47 [facility] [place] [facility] : 1960 Sex: MEXAM: BILATERAL LOWER EXTREMITY VENOUS DOPPLER ULTRASOUNDHISTORY: Swelling;altered mental statusCOMPARISON: No relevant prior.FINDINGS:Realtime hand-held grayscale, color Doppler and pulsed Doppler ultrasound examination of the deep venous system of the bilateral lower extremity was performed from the common femoralvein to the posterior tibial vein. Right lower extremity: There is normal wall compression, augmentation, phasic flow and spontaneous flow in the common femoral, segments of the femoral, popliteal and posterior tibial veins of the calf. There is normal response to Valsalva in the common femoral vein. The greater saphenous and profunda femoral veins are identified.Left lower extremity: There is normal wall compression, augmentation, phasic flow and spontaneous flow in the common femoral, segments of the femoral, popliteal and posterior tibial veins of the calf. There is normal response to Valsalva in the common femoral vein. The greater saphenous and profunda femoral veins are identified.IMPRESSION: There is no evidence of DVT in the bilateral lower extremity.Electronically signed by: Bryan Rubin MD 08/04/2023 5:23 PM CDT [id number] NATRIURETIC [id number] 14:58:00 Test Item Value Reference Range Interpretation Comments BNP (test code = 64 pg/mL See_Comment [Automated message] The A74) system which ge nerated this result tra nsmitted reference range : <=100. The reference r diego was not used to int erpret this result as cammy l/abnormal. TROPONIN [id number] 14:57:00 Test Item Value Reference Range Interpretation Comments TROPONIN I (test code = A84) 8.28 pg/mL 0.00-45.20 T4 [id number] 07:21:00 Test Item Value Reference Range Interpretation Comments T4 FREE (test code = A91) 0.93 ng/dL 0.89-1.76 B12 [id number] 07:13:00 Test Item Value Reference Range Interpretation Comments VIT B12 (test code = A60) 298.0 pg/mL 211.0-911.0 VALPROIC ACID (DEPAKENE)2023-07-30 07:10:00 Test Item Value Reference Range Interpretation Comments VALP ACID (test code = 95A) 59.1 ug/mL 50.0-100.0 LIPID [id number] 07:10:00 Test Item Value Reference Range Interpretation Comments CHOLESTROL (test code 147 mg/dL See_Comment [Auto mated message] = 44A) The system [employer] generated this result transmitted ref erence range: <=199. T he reference range was not used to int erpret this result as normal/abnormal . TRIGLYCERI (test code 195 mg/dL See_Comment H [Auto mated message] = 42B) The system [employer] generated this result transmitted ref erence range: <=149. T he reference range was not used to int erpret this result as normal/abnormal . HDL (test code = 83D) 36.8 mg/dL 40.0-60.0 L LDL (test code = 34B) 89 mg/dL See_Comment [Auto mated message] The system whic [employer] generated this result transmitted ref erence range: <=99. Th e reference range was not used to int erpret this result as normal/abnormal . CHL/HDL (test code = 4.0 0.0-3.4 H CHR) THYROID PANEL/SCREEN (TSH)2023-07-30 06:58:00 Test Item Value Reference Range Interpretation Comments TSH (test code = A57) 6.113 uIU/mL 0.550-4.780 H [id number] 06:54:00 Test Item Value Reference Range Interpretation Comments FOLATE (test code = 17.0 ng/mL See_Comment [Automa dennis message] The A75) system which ge nerated this result tra nsmitted reference range : >=5.5. The reference r diego was not used to int erpret this result as normal/abnormal . [id number] 06:51:00 Test Item Value Reference Range Interpretation Comments PREALBUMIN (test code = 08E) 20 mg/dL 10-40 [id number] 06:50:00 Test Item Value Reference Range Interpretation Comments Hb A1C % (test code 5.3 % 3.8-6.4 = HBA) A1C % (test code = HbA1c (% ) A1C) Reference Range Normal <5.7 Prediabetes 5.7-6.4 Diabetic >=6.5 [id number] 06:48:00 Test Item Value Reference Range Interpretation Comments MAGNESIUM (test code = 48A) 1.7 mg/dL 1.6-2.6 URINALYSIS WITH [id number] 20:13:00 Test Item Value Reference Range Interpretation Comments COLOR (test code = COLU) ORANGE YELLOW A CLARITY (test code = CLA) CLOUDY CLEAR A GLUCOSE UR (test code = UA GLUCOSE) NEGATIVE NEGATIVE BILI UR (test code = BILE) NEGATIVE NEGATIVE KETONES UR (test code = BRIAN) TRACE NEGATIVE A SP GRAVITY (test code = SPGR) 1.023 1.005-1.030 PH UR (test code = PH) 6.0 4.5-8.0 PROTEIN UR (test code = PU) 1+ NEGATIVE A UROBIL UR (test code = UROQ) 1.0 EU/dL 0.2-1.0 NITRITE UR (test code = NITRITE) NEGATIVE NEGATIVE BLOOD UR (test code = UA BLOOD) 3+ NEGATIVE A LEUK ES UR (test code = LEUK) TRACE NEGATIVE A WBC UR (test code = UWBC) 8 /HPF 0-3 H RBC UR (test code = URBC) >100 /HPF 0-2 H EPITH UR (test code = UEPC) FEW /LPF NONE A BACTERIA UR (test code = UBACT) FEW /HPF NONE A CAST UR (test code = CAST) /LPF NONE CRYSTAL UR (test code = CRYU) / LPF NONE MUCUS UR (test code = MUC) / HPF NONE AMORPH UR (test code = BRITTNEY) / HPF NONE TRICH UR (test code = UTRICH) /HPF NONE YEAST UR (test code = UY) /HPF NONE SPERM UR (test code = USPERM) /HPF NONE DRUGS OF [id number] 19:46:00 Test Item Value Reference Range Interpretation Comments DRUG SCRN (test code = URINE DRUG HDOA) SCREEN This is an unconfirmed screening result and should not be used for non-medical purposes CANNABINOD (test code NEGATIVE NEGATIVE = 88C) AMPHETAMINE (test code NEGATIVE NEGATIVE = 84A) BENZODIAZP (test code NEGATIVE NEGATIVE = 86A) BARBITURAT (test code NEGATIVE NEGATIVE = 85A) OPIATES (test code = NEGATIVE NEGATIVE 92B) COCAINE (test code = NEGATIVE NEGATIVE 87A) PHENCYCLID (test code NEGATIVE NEGATIVE = 66A) METHADONE (test code = NEGATIVE NEGATIVE 64A) DOAH (test code = DOAH.) URINE DRUGSCREEN Cut-off values are as follows: Cannabinoids 50 ng/mL Cocaine 300 ng/mL Amphetamines 1000 ng/mL Phencyclidine 25 ng/mL Benzodiazepines 200 ng.mL Methadone 300 ng/mL Barbiturates 200 ng/mL Opiates 300 ng/mL CT HEAD W/O [id number] 18:14:41 [facility] [place] [facility] : 1960 Sex: MCT Brain without contrast.Location code:[id number] HISTORY: Altered mental status; Social problemComparison: NoneTechnique: Routine unenhanced CT brain was performed and submitted in 5mm axial images with sagittal and coronal reconstructions. One or more of the following dose reduction techniques were used: Automated exposure control, adjustment of the mA and or KV according to patient size, and/or utilization of iterative reconstruction technique. DLP: 1086.92 mGy- cm.Findings:There is no acute intracranial hemorrhage or extra-axial collection. There is no hydrocephalus, midline shift, or space occupying mass. There is generalized volume loss with compensatory enlargement of the cortical sulci and cerebral ventricles. Moderate periventricular low attenuation is consistent with chronic small vessel ischemic changes. Biswas-white matter differentiation is otherwise normal with no definite CT evidence of an acute infarct.The cranial vault and skull base are intact. The paranasal sinuses and mastoid air cells are well-aerated.IMPRESSION: Moderate chronic small vessel ischemic changes with otherwise no acute intracranial abnormality.Electronically signed by: Ruiz Hopson MD 07/29/2023 6:14 PM CDT [id number] 17:53:00 Test Item Value Reference Range Interpretation Comments AMMONIA (test code = 54A) 26 umol/L 11-32 SARS-CoV (RAPID ANTIGEN)2023-07-29 17:48:00 Test Item Value Reference Range Interpretation Comments SARS-CoV (ANTIGEN) NEGATIVE NEGATIVE (test code = COVAG) COVID AG (test This test has been code = COVAGC) marketed under the FDA Emergency Use Authorization (EUA) to meet challenges of the COVID-19 pandemic. The validation standards normally enforced by the FDA and the [employer] of the [employer] (CAP) are more stringent than those required for this test. Therefore, the result should be interpreted with caution and close attention to other clinical and epidemiological data COMPREHENSIVE METABOLIC [id number] 17:37:00 Test Item Value Reference Range Interpretation Comments GLUCOSE (test code 116 mg/dL 75-100 H = 06D) SODIUM (test code 140 mmol/L 136-145 = 01A) POTASSIUM (test 3.7 mmol/L 3.6-5.1 code = 01B) CHLORIDE (test 105 mmol/L 98-107 code = 04A) CO2 (test code = 31 mmol/L 20-31 02A) ANION GAP (test 7.7 mmol/L code = ANG) BUN (test code = 10 mg/dL 9-23 05D) CREATININE (test 1.0 mg/dL 0.7-1.3 code = 03E) GFR (test code = 81 See_Comment L [Automated GFR) mL/min/1.73m\\S\\2 message] Th e system which generated this result transmit dennis reference range : >=90. The reference range was not used to interpret this result as normal/abnormal . GFR 94 See_Comment [Automated MOLDOVAN (test mL/min/1.73m\\S\\2 message] The code = GFRAA) system which generated this result transmit dennis reference range : >=90. The reference range was not used to interpret this result as normal/abnormal . EGFR (test code = eGFR BY EGFR) CKD-EPI CALCULATION IS NOT RECOMMENDED FOR PATIENTS UNDER 18 YEARS OF AGE. BUN/CREA (test 10 12-20 L code = BCR) CALCIUM (test code 9.0 mg/dL 8.3-10.6 = 09D) BILI TOTAL (test 0.2 mg/dL 0.2-1.0 code = 11A) PROTEIN (test code 6.9 g/dL 5.7-8.2 = 07D) ALBUMIN (test code 4.3 g/dL 3.2-4.8 = 08D) GLOBULIN (test 2.6 g/dL 1.5-3.8 code = GLB) ALB/GLOB (test 1.7 1.0-2.6 code = AGRR) ALK PHOS (test 75 IU/L 46-116 code = 35A) AST (test code = 11 IU/L See_Comment [Automated 30A) message] The system which generated this result transmit dennis reference range : <=33. The reference range was not used to interpret this result as normal/abnormal . ALT (test code = 9 IU/L 10-49 L 31A) [id number] 17:37:00 Test Item Value Reference Range Interpretation Comments ACETAMINPH (test code = 94M) <0.2 mg/dL 1.2-2.5 L ALCOHOL BLOOD (ETOH)2023-07-29 17:37:00 Test Item Value Reference Range Interpretation Comments ETOH (test code = ETHANOL HALC) The result is to be used only for medical purposes ALCOHOL (test <10 mg/dL See_Comment [Automated me ssage] code = 56A) The system whic h generated this result transmit dennis reference range : <=10. The refer ence range was not u sed to interpret th is result as normal/abnormal . [id number] 17:37:00 Test Item Value Reference Range Interpretation Comments SALICYLATE (test code = 94B) <3.0 mg/dL 15.0-30.0 L CBC (INCLUDES AUTOMATED DIFFERENTIAL)2023-07-29 17:28:00 Test Item Value Reference Range Interpretation Comments WBC (test code = WBC) 6.9 10\\S\\3/uL 4.5-11.0 RBC (test code = RBC) 5.10 10\\S\\6/uL 4.20-5.60 HGB (test code = HBG) 15.4 g/dL 14.0-18.0 HCT (test code = HCT) 47.7 % 35.0-46.0 H MCV (test code = MCV) 93.5 fL 80.0-94.0 MCH (test code = MCH) 30.2 pg 27.0-31.0 MCHC (test code = MCHC) 32.3 g/dL 32.0-36.0 RDW (test code = RDW) 13.8 % 11.5-14.5 PLT (test code = PLT) 219 10\\S\\3/uL 130-400 MPV (test code = MPV) 11.1 fL 9.4-12.4 NEUTROP # (test code = NE#) 3.6 10\\S\\3/uL 2.0-8.0 LYMPH # (test code = LY#) 2.6 10\\S\\3/uL 1.2-4.0 MONOCYTE # (test code = MO#) 0.6 10\\S\\3/uL 0.0-1.1 EOSINOPH # (test code = EO#) 0.0 10\\S\\3/uL 0.0-0.7 BASOPHIL # (test code = BA#) 0.0 10\\S\\3/uL 0.0-0.3 IG # (test code = IG#) 0.02 10\\S\\3/uL 0.00-0.06 NRBC # (test code = NRBC#) 0.00 10\\S\\3/uL 0.00-0.01 NEUTROPH % (test code = NE%) 52.4 % 35.0-73.0 LYMPH % (test code = LY%) 37.4 % 20.0-55.0 MONO % (test code = MO%) 8.7 % 2.5-10.0 EOSINOPH % (test code = EO%) 0.6 % 0.0-5.0 BASOPHIL % (test code = BA%) 0.6 % 0.0-2.0 IG % (test code = IG%) 0.3 % 0.0-0.8 NRBC% (test code = NRBC%) 0.0 % 0.0-0.2 MANDIFF (test code = MDIFF) NO NO XR CHEST 1 VIEW [id number] 17:26:41 [facility] : 1960 Sex: MChest x-ray 1 v iewLocation Code: [id number] HISTORY: Altered mental status; Social problemCOMPARISON: NoneCOMMENT: The heart size is mildly enlarged with mild congestion without focal consolidations. Right costophrenic angle has been cut off film.IMPRESSION: Mild cardiomegaly with mild congestion.Electronically chasity d by: Ruiz Hopson MD 07/29/2023 5:26 PM CDT MAXILLOFACIAL/MANDIBLE WO [id number] 04:05:18 No acute facial fracture. Extensive dental caries. The left medial and lateral maxillary incisors ar eabsent, without definite acute fracture. Clinical correlation is suggested. RL: 460 AFC: [id number] Ordering physician: WENDY SOLANO INDICATION: Acute facial trauma COMPARISON: None TECHNIQUE: Axial images of the face or performed without the administrationof intravenous contrast. Images were reformatted in the coronal andsagittalplane. CT scan was performed according to ALARA [...] acute fracture. Clinical correlation is suggested.RL: 460AF: [id number] signed by Perla Boothe MD, PhD at 06/03/2021 11:05 PMUnTexas [facility]opedic HospitalRAD, ABDOMEN/KUB, 1 VIEW [id number] 23:02:00Reason for exam:->r/o volvulus Addendum BeginsREPORT STATUS:A Indication: Abdominal distention. Signed: Christa Mccray MDReport Verified Date/Time: 08/31/2017 23:02:03 Reading Location: [address] Ortho Consult Reading RoomAddendum EndsFINAL REPORT RAD, ABDOMEN/KUB, 1 VIEW AP CLINICAL IND ICATION: "r/o volvulus" COMPARISON: None TECHNIQUE: Single, frontal radiograph of the abdomen. IMPRESSION: Massively distended left colon concerning for sigmoid volvulus versus distal large bowel obstruction.No pneumatosis or obvious pneumoperitoneum.No acute osseous abnormality. Findings were communicated to Dr. Lugo at the time of this dictation. Signed: Christa Mccray MDReport Verified Date/Time:08/22/2017 21:01:42 Reading Location: [facility] C013X Ortho Consult Reading Room UE [id number] 18:26:00Surgical Pathology Report Case: [id number] Authorizing Provider: Alberto Murillo MD Collected: 08/23/2017 1239 Ordering Location: [facility] PERIOPERATIVE Received: 08/24/2017 0813 SERVICES Pathologist: Janessa [...] REACTIVE CHANGES Signing Pathologist Direct Phone Line: [phone] signed by Janessa Farias MD on 08/31/2017 at 6:26 PMA. [id number]. [id number]. [id number] c bowel, sigmoid volvulusA. Sigmoid colon; B. Rectal [...] identified.Section code: A1, parallel resection margins; A2-A6, client support representative sections of colon; A7, three intact lymph nodes.Specimen B: Received fresh labeled "soft tissue, other", description "rectal stump" is a segment of colon measuring 1.5 cm in length and 12.5 cm in diameter.The serosal surface is purple-parker to red, dusky and edematous.The specimen is opened to reveal pink- parker, dusky, edematous mucosa throughout with obliteration of the mucosalfolds. No discrete masses are identified.Section code: B1-B2, parallel resection margins; B3-B5, client support representative section of colon.Specimen C: Received fresh labeled "appendix" is a 4.0 cm in length x 0.6 cm in diameter, intact, vermiform appendix with attached mesoappendix.The serosal surface is purple-parker, dusky, and smooth. Sectioning reveals an unremarkable lumen containing yellow-green semisolid material.Section code: C1, parallel resection margin; C2, client support representative sections of appendix. DB/ewPerformedCLOSTRIDIUM DIFFICILE TOXIN [id number] 14:00:00 Test Item Value Reference Range Interpretation Comments CLOSTRIDIUM DIFFICILE TOXIN, PCR Not Detected Not Detected ([employer]) (test code = 1525) This qualitative real-time polymerase chain reaction [...] testingof a positive result is not recommended.POCT-GLUCOSE [id number] 12:44:00 Test Item Value Reference Range Interpretation Comments POC-GLUCOSE METER 131 mg/dL 70-110 H TESTED AT [facility] 67[address] ([employer]) (test code = [place] [address] POCT-GLUCOSE [id number] 08:30:00 Test Item Value Reference Range Interpretation Comments POC-GLUCOSE METER 128 mg/dL 70-110 H TESTED AT [facility] 67[address] (BEAKER) (test code = [place] 1538) [address] BASIC METABOLIC [id number] 05:23:00 Test Item Value Reference Range Interpretation Comments SODIUM (BEAKER) 136 meq/L 136-145 (test code = 381) POTASSIUM (BEAKER) 3.6 meq/L 3.5-5.1 (test code = 379) CHLORIDE (BEAKER) 105 meq/L 98-107 (test code = 382) CO2 (BEAKER) (test 25 meq/L 22- code = 355) BLOOD UREA NITROGEN 9 [...] S NOT APPLICABLE FOR DIALYSIS PATIEN TS. [id number] 05:22:00 Test Item Value Reference Range Interpretation Comments PHOSPHORUS (BEAKER) (test code = 2.2 mg/dL 2.3-4.7 L 604) [id number] 05:22:00 Test Item Value Reference Range Interpretation [...] (BEAKER) (test code = 412) PLATELET COUNT (AKER) (test 429 K/CU MM 150-450 code = 756) MEAN PLATELET VOLUME (BEAKER) 9.9 fL 9.4-12.4 (test code = 754) NUCLEATED RED BLOOD CELLS 0 /100 WBC 0-0 (BEAKER) (test code = 413) POCT-GLUCOSE [id number] 00:30:00 Test Item Value Reference Range Interpretation Comments POC-GLUCOSE METER 113 mg/dL 70-110 H TESTED AT [place] [address] ([facility]) (test code = [facility] 1538) [address] POCT-GLUCOSE [id number] 21:15:00 Test Item Value Reference Range Interpretation Comments POC-GLUCOSE METER 94 mg/dL 70-110 TESTED AT [place] [address] ([facility]) (test code = [facility] [address] 1538) POCT-GLUCOSE [id number] 12:01:00 Test Item Value Reference Range Interpretation Comments POC-GLUCOSE METER 105 mg/dL 70-110 TESTED AT [place] [address] ([facility]) (test code = [facility] 1538) [address] URINALYSIS W/ REFLEX URINE [id number] 07:45:00 Test Item Value Reference Range Interpretation [...] Few SOURCE(BEAKER) (test code = 2795) POCT-GLUCOSE [id number] 07:01:00 Test Item Value Reference Range Interpretation Comments POC-GLUCOSE METER 91 mg/dL 70-110 TESTED AT [facility] [address] (BEAKER) (test code = [place] [address] 1538) BASIC METABOLIC [id number] 07:01:00 Test Item Value Reference Range Interpretation [...] S NOT APPLICABLE FOR DIALYSIS PATIEN TS. [id number] 06:56:00 Test Item Value Reference Range Interpretation Comments PHOSPHORUS (BEAKER) (test code = 2.4 mg/dL 2.3-4.7 604) [id number] 06:56:00 Test Item Value Reference Range Interpretation [...] 0-0 (BEAKER) (test code = 413) POCT-GLUCOSE [id number] 00:18:00 Test Item Value Reference Range Interpretation Comments POC-GLUCOSE METER 92 mg/dL 70-110 TESTED AT [facility] 67[address] (BEAKER) (test code = [place] [facility] [address] 1538) RAD, CHEST, 1 VIEW, NON [id number] 09:09:00Reason for exam:->fever, leukocytosisReason for exam:->assess for [...] nonspecific gaseous distention of bowel. Signed: Charley Sahu Verified Date/Time: 08/26/2017 09:09:27 Reading Location: [facility] Radiology Reading Room [id number] 06:20:00 Test Item Value Reference Range Interpretation Comments PHOSPHORUS (BEAKER) (test code = 2.9 mg/dL 2.3-4.7 604) [id number] 06:20:00 Test Item Value Reference Range Interpretation Comments MAGNESIUM (BEAKER) (test code = 1.4 mg/dL 1.6-2.6 L 627) BASIC METABOLIC [id number] 06:20:00 Test Item Value Reference Range Interpretation [...] NOT APPLICABLE FOR DIALYSIS PATIEN TS. PROTHROMBIN [id number] 06:16:00 Test Item Value Reference Range Interpretation [...] WBC 0-0 (BEAKER) (test code = 413) [id number] 04:23:00 Test Item Value Reference Range Interpretation Comments PHOSPHORUS (BEAKER) (test code = 1.8 mg/dL 2.3-4.7 L 604) [id number] 04:23:00 Test Item Value Reference Range Interpretation Comments MAGNESIUM (BEAKER) (test code = 1.6 mg/dL 1.6-2.6 627) BASIC METABOLIC [id number] 04:23:00 Test Item Value Reference Range Interpretation [...] NOT APPLICABLE FOR DIALYSIS PATIEN TS. PROTHROMBIN [id number] 04:05:00 Test Item Value Reference Range Interpretation [...] = 413) RAD, CHEST, 1 VIEW, NON [id number] 19:13:00Reason for exam:->evaluate for fluid overloadFINAL REPORT Chest, portable AP view History: Shortness of breath Comparison: No comparisons available for review IMPRESSION: The heart is within normal limits of size. There are low lung volumes. Pulmonary vascular congestion is present. There is mild interstitial edema. There isno focal consolidation, sizable pleural effusion, or pneumothorax. Signed: Yariel Duncan Verified Date/Time: 08/24/2017 19:13:39 Reading Location: [address] Consult Reading Room POCT-GLUCOSE [id number] 11:31:00 Test Item Value Reference Range Interpretation Comments POC-GLUCOSE METER 135 mg/dL 70-110 H TESTED AT [facility] [address] (BEAKER) (test code = [place] [address]) [id number] CBC (HEMOGRAM ONLY)2017-08-24 06:14:00 Test Item Value [...] (BEAKER) (test code = 413) BASIC METABOLIC [id number] 06:08:00 Test Item Value Reference Range Interpretation [...] S NOT APPLICABLE FOR DIALYSIS PATIEN TS. [id number] 06:07:00 Test Item Value Reference Range Interpretation Comments MAGNESIUM (BEAKER) (test code = 1.8 mg/dL 1.6-2.6 627) [id number] 06:07:00 Test Item Value Reference Range Interpretation Comments PHOSPHORUS (BEAKER) (test code = 2.8 mg/dL 2.3-4.7 604) PROTHROMBIN [id number] 05:57:00 Test Item Value Reference Range Interpretation Comments PROTIME (BEAKER) (test code = 16.6 seconds 11.7-14.7 H 759) INR (BEAKER) (test code = 370) 1.4 <=5.9 RECOMMENDED COUMADIN/WARFARIN INR THERAPY RANGESSTANDARD DOSE: 2.0 - 3.0 Includes: PROPHYLAXIS for venous thrombosis, systemic embolization; TREATMENT for venous thrombosis and/or pulmonary embolus.HIGH RISK: Target INR is 2.5-3.5 for patients with mechanical heart valves.POCT-GLUCOSE [id number] 15:56:00 Test Item Value Reference Range Interpretation Comments POC-GLUCOSE METER 144 mg/dL 70-110 H TESTED AT [facility] [address] (BEAKER) (test code = [place] [address]) [address] [id number] 05:55:00 Test Item Value Reference Range Interpretation Comments PHOSPHORUS (BEAKER) (test code = 3.8 mg/dL 2.3-4.7 604) [id number] 05:55:00 Test Item Value Reference Range Interpretation Comments MAGNESIUM (BEAKER) (test code = 1.6 mg/dL 1.6-2.6 627) BASIC METABOLIC [id number] 05:55:00 Test Item Value Reference Range Interpretation [...] PATIEN TS. CBC W/PLT COUNT & AUTO [id number] 05:38:00 Test Item Value Reference Range Interpretation [...] code = 2801) RAD, ABDOMEN/KUB, 1 VIEW [id number] 00:17:00Reason for exam:->evaluate tube placement and compare volvulus from before Should this be performed at the bedside?->YesFINAL REPORT EXAMINATION: SUPINE ABDOMEN CLINICAL INDICATION: Sigmoid volvulus,status post rectal tube placement. Evaluate for interval change. IMPRESSION: Compared with 08/22/2017, 2031 hours Two rectal tubes have been placed [...] by supine patient positioning. Signed: Lincoln Munoz [facility]epsamar[facility] Verified Date/Time: 08/23/2017 00:17:48 Reading Location: [address] Reading Room LACTATE DEHYDROGENASE (LDH)2017-08-22 21:20:00 Test Item Value Reference Range Interpretation Comments LACTATE DEHYDROGENASE (BEAKER) (test 237 U/L 125-220 H code = 635) COMPREHENSIVE METABOLIC [id number] 21:20:00 Test Item Value Reference Range Interpretation [...] DIALYSIS PATIEN TS. LACTIC ACID, VENOUS, WHOLE [id number] 21:15:00 Test Item Value Reference Range Interpretation Comments LACTATE BLOOD VENOUS 1.2 mmol/L 0.5-2.2 Specime n slightly (2) (BEAKER) (test hemolyzed code = 1925) Effective 04/02/2016: Units/Reference Range ChangeNew: 0.5-2.2 mmol/L Previous: 5- 20 mg/dLPROTHROMBIN [id number] 21:07:00 Test Item Value Reference Range Interpretation [...] mechanical heart valves.CBC W/PLT COUNT & AUTO [id number] 21:06:00 Test Item Value Reference Range Interpretation [...]
--- NOTE | 2023-08-30 17:02 | RAD REPORT ---
EXAM DESCRIPTION: CT - Ct Stroke Brain Wo Cont - 08/30/2023 4:45 pm CLINICAL HISTORY: STROKE ALERT COMPARISON: Head Brain Wo Cont dated 01/04/2023; HEAD BRAIN W O CONTRAST dated 01/26/2012 TECHNIQUE: Noncontrast head CT images were obtained without IV contrast. Multiplanar reformats were generated and reviewed. All CT scans are performed using dose optimization technique as appropriate and may include automated exposure control or mA/KV adjustment according to patient size. FINDINGS: No intracranial hemorrhage, mass, or edema. Midline structures are unremarkable. Stable ventricular caliber. Right subinsular and centrum semiovale encephalomalacia with ex vacuo right lateral ventricle dilatio n, suggestive of sequelae of remote ischemia. Some mineralization noted along right posterior sylvian fissure, stable. Biswas-white matter differentiation is otherwise preserved, without evidence of acute infarct. No abnormal extra-axial fluid collections. Mastoid air cells and visualized portions of the paranasal sinuses are clear. No acute bony findings. IMPRESSION: No evidence of an acute intracranial process. Sequelae of remote ischemia in the right M CA territory, stable. The findings were communicated to Bruno Del Cid on 08/30/2023 at 16:56 hours.
[2023-08-30 17:55] LABS: Absolute Lymphocytes (CBC) 1.7 K/uL (0.7-4.9); Hematocrit 41.2 % (39.6-49.0); Lymphocytes % 17.1 % (15.3-44.8); MCV 90.6 fL (80-100); MPV 8.9 fL (7.6-11.3); Platelets 267 thou/uL (152-406); RBC Red Blood Cell Count 4.55 M/uL (4.33-5.43)
[2023-08-30 18:03] LABS: Protime INR 1.04
[2023-08-30 18:12] LABS: ALT/SGPT 44 U/L (16-61); AST/SGOT 18 U/L (15-37); Albumin 3.3 g/dL (3.4-5.0); Alkaline Phosphatase 80 U/L (45-117); BUN Blood Urea Nitrogen 33 mg/dL (7-18); Bicarbonate 28 mEq/L (21-32); Bilirubin Total 0.2 mg/dL (0.2-1.0); Glomerular Filtration Rate 19 ml/min (=/>90); Glucose Level 95 mg/dL (74-106); Magnesium 2.2 mg/dL (1.6-2.4); Potassium 3.7 mEq/L (3.5-5.1); Protein, Total 7.1 g/dL (6.4-8.2); Sodium Level 140 mEq/L (136-145); Troponin High Sensitivity 28.7 pg/mL (<58.9)
[2023-08-30 18:18] LABS: Bilirubin Direct < 0.1 mg/dL (0-0.2); Bilirubin Indirect, Calculated ND mg/dL (0.2-0.8)
--- NOTE | 2023-08-30 18:24 | RAD REPORT ---
EXAM DESCRIPTION: RADChest Single View08/30/2023 5:35 pm CLINICAL HISTORY: altered mental status COMPARISON: Chest Single View dated 08/24/2023; Chest Single View dated 08/23/2023; Chest Single View dated 01/05/2023; Chest Single View dated 01/04/2023 TECHNIQUE: Portable AP view of the chest. FINDINGS: Bibasilar and perihilar atelectatic changes. Decreased inspiratory effort limits evaluatio n. No pneumothorax or effusion. The cardiomediastinal contours are unremarkable. IMPRESSION: No acute cardiopulmonary process. Bilateral atelectatic changes.
[2023-08-30 18:37] LABS: Specific Gravity 1.028 (1.005-1.030); Urine Bacteria <20 /HPF (<20); Urine Bilirubin NEGATIVE (Negative); Urine Blood 3+ (OVER) (Negative); Urine Clarity Extremely Turbid (Clear); Urine Color Light-Orange (Yellow); Urine Glucose NEGATIVE (Negative); Urine Protein 1+ (Negative); Urine RBC >50 /HPF (None Seen); Urine Urobilinogen 1+ (Normal)
[2023-08-30] MEDS ORDERED: CEFTRIAXONE 1000 MG/VIAL ONE (19:16)
--- NOTE | 2023-08-30 19:19 | EDPHYS ---
Physician Documentation [facility] Name: Chinedu Singh Age: 62 yrs Sex: Male : 1960 Arrival Date: 08/30/2023 Time: 16:24 Bed 19 Private MD: ED Physician Bruno Del Cid HPI: 08/30 16:40 This 62 yrs old Male presents to ER via EMS with complaints of Altered Mental cp Status. 16:40 The patient presents with decreased responsiveness. Onset: The symptoms/episode cp began/occurred today, at unknown time, reportedly around lunchtime. 16:40 Possible causes: CVA or TIA, sepsis. cp 16:40 Current symptoms: In the emergency department the patient's symptoms are unchanged from cp the initial presentation, despite EMS interventions. Patient's baseline: Neuro: alert and fully oriented, Motor: left-sided weakness. The patient has experienced a previous episode, last month. Historical: - Allergies: 18:09 No Known Allergies; hb - PMHx: 16:33 Anxiety; Cerebral infarction; contractures; CVA; Dementia; Depression; depressive eh3 disorder; dysarthria; GERD; hemiplegia; Hyperlipidemia; hemiplegia; Hypertensive disorder; GERD; VASCULAR DEMENTIA; - Immunization history:: Adult Immunizations up to date. - Social history:: Smoking status: unknown. ROS: 16:45 Constitutional: Negative for fever, cp 16:45 Unable to obtain ROS due to altered mental status, cp Exam: 16:50 Constitutional: The patient appears in no acute distress, non-diaphoretic, well cp developed, well nourished, 16:50 Head/Face: Normocephalic, atraumatic. cp 16:50 Eyes: Pupils: equal, round, and reactive to light and accomodation, Conjunctiva: normal, no exudate, no injection, Sclera: no appreciated abnormality, Lids and lashes: appear normal, bilaterally, 16:50 ENT: External ear(s): are unremarkable, Nose: is normal, Mouth: Lips: dry, Oral mucosa: dry, Posterior pharynx: Airway: no evidence of obstruction, patent, 16:50 Neck: ROM/movement: is normal, is supple, no meningismus, no nuchal rigidity, 16:50 Chest/axilla: Inspection: normal, Palpation: is normal, no crepitus, no tenderness, 16:50 Cardiovascular: Rate: normal, Rhythm: regular, 16:50 Respiratory: the patient does not display signs of respiratory distress, Respirations: normal, no use of accessory muscles, no retractions, labored breathing, is not present, Breath sounds: decreased breath sounds, that are mild, throughout, 16:50 Abdomen/GI: Inspection: abdomen appears normal, Bowel sounds: active, Palpation: abdomen is soft and non-tender, in all quadrants, 16:50 Skin: cellulitis, is not appreciated, no rash present. 16:50 Neuro: Orientation: Not oriented to person, place, situation, Mentation: unable to follow commands, Vital Signs: 16:27 BP 109 / 60; Pulse 82; Resp 16; Temp 98.4(O); Pulse Ox 100% on 3 lpm NC; eh3 17:00 BP 103 / 73; Pulse 79; Resp 16; Pulse Ox 100% on 3 lpm NC; eh3 17:30 BP 107 / 72; Pulse 76; Resp 15; Pulse Ox 100% on 3 lpm NC; eh3 18:00 BP 131 / 66; Pulse 78; Resp 16; Pulse Ox 100% on 3 lpm NC; eh3 18:30 BP 129 / 67; Pulse 59; Resp 15; Pulse Ox 96% on 3 lpm NC; eh3 19:30 BP 123 / 86; Pulse 81; Resp 12; Pulse Ox 100% on 3 lpm NC; eh3 20:30 BP 97 / 60; Pulse 78; Resp 13; Pulse Ox 100% on 3 lpm NC; eh3 21:52 BP 106 / 75; Pulse 73; Resp 13 S; Pulse Ox 100% on 3 lpm NC; lg3 MDM: 16:28 Patient medically screened. 16:45 ED course: unknown onset of AMS. EMS reports around lunch. Attempt to talk to nurse at snf unsuccessful. Patient is not a tnk candidate. 19:15 Data reviewed: vital signs, nurses notes, lab test result(s), EKG, radiologic studies, cp CT scan, plain films. 21:00 Consideration of Admission/Observation Patient was admitted/placed on observation. Management of patient was discussed with the following: DR Gao who will admit patient for continued care. 08/30 16:36 Order name: Basic Metabolic Panel; Complete Time: 18:36 08/30 18:37 Interpretation: Normal except: BUN 33; CRE 3.58; GFR 19. cp 08/30 16:36 Order name: CBC with Diff; Complete Time: 18:36 cp 08/30 16:36 Order name: Hepatic Function; Complete Time: 18:36 cp 08/30 16:36 Order name: High Sensitivity Troponin; Complete Time: 18:36 cp 08/30 16:36 Order name: Magnesium; Complete Time: 18:36 cp 08/30 16:36 Order name: Protime (+inr); Complete Time: 18:36 cp 08/30 16:36 Order name: Ptt, Activated; Complete Time: 18:36 cp 08/30 16:36 Order name: Urinalysis W/Microscopic; Complete Time: 18:56 cp 08/30 18:57 Interpretation: Normal except: UCLA Extremely Turbid; UKET TRACE; UBLD 3+ (OVER); UPROT cp 1+; UUROB 1+; UESTR 500; UWBC >50; URBC >50; HYAL >20. 08/30 16:36 Order name: Lactate w/ 2H reflex if indic.; Complete Time: 18:36 cp 08/30 16:36 Order name: AMMONIA; Complete Time: 18:36 cp 08/30 16:36 Order name: Blood Culture Adult (2) cp 08/30 18:44 Order name: Urine Culture EDMS 08/30 21:36 Order name: Basic Metabolic Panel EDMS 08/30 21:36 Order name: Basic Metabolic Panel EDMS 08/30 21:36 Order name: CBC with Automated Diff EDMS 08/30 21:36 Order name: CBC with Automated Diff EDMS 08/30 16:36 Order name: CT Stroke Brain w/o Contrast; Complete Time: 18:36 cp 08/30 16:36 Order name: Stroke CXR 1 View; Complete Time: 18:36 cp 08/30 18:56 Order name: CT Chest Abdomen Pelvis W/O Contrast; Complete Time: 20:58 cp 08/30 16:36 Order name: EKG; Complete Time: 16:37 cp 08/30 21:36 Order name: Regular EDMS 08/30 16:36 Order name: Accucheck; Complete Time: 17:53 cp 08/30 16:36 Order name: Cardiac monitoring; Complete Time: 17:07 cp 08/30 16:36 Order name: EKG - Nurse/Tech; Complete Time: 18:29 cp 08/30 16:36 Order name: IV Saline Lock; Complete Time: 17:52 cp 08/30 16:36 Order name: Labs collected and sent; Complete Time: 17:52 cp 08/30 16:36 Order name: NPO; Complete Time: 17:07 cp 08/30 16:36 Order name: O2 Per Protocol; Complete Time: 17:07 cp 08/30 16:36 Order name: O2 Sat Monitoring; Complete Time: 17:07 cp 08/30 16:36 Order name: Stroke Swallow Screen; Complete Time: 18:29 cp 08/30 16:36 Order name: Cath; Complete Time: 18:29 cp EC:07 Rate is 78 beats/min. Rhythm is regular. RI interval is normal. QRS interval is cp prolonged at 130 msec. Interpreted by me. Reviewed by me. Administered Medications: 19:04 Drug: Rocephin IV 1 grams IV at calculated rate once; Given slow IV push per pharmacy eh3 instructions Route: IV; Rate: calculated rate; Site: right antecubital; 20:00 Follow up: Response: No adverse reaction; IV Status: Completed infusion; IV Intake: [id number] 21:32 Drug: NS 0.9% IV 1000 ml IV at 1000 ml/hr Per protocol; 1000 mL bolus Route: IV; Rate: lg3 1000 ml/hr; Site: right antecubital; 21:32 Drug: NS 0.9% IV 1000 ml IV at 100 ml/hr continuous Route: IV; Rate: 100 ml/hr; Site: 3 right antecubital; Disposition Summary: 08/30/23 19:18 Hospitalization Ordered Notes: Hospitalization Status: Inpatient Admission cp Provider: Noah Gao cp Location: Telemetry/MedSurg (Inpatient) cp Condition: Stable cp Problem: new cp Symptoms: have improved cp Bed/Room Type: Standard cp Room Assignment: 411(08/30/23 21:50) cg Diagnosis - Altered mental status, unspecified cp - Acute kidney failure, unspecified cp Forms: - Medication Reconciliation Form cp - SBAR form cp - Leadership Thank You Letter cp Signatures: Dispatcher [employer] EDBruno Borjas PA PA cp Garcia, Cindy, RN RN Zenia Romero RN RN hb Gibson, Lacie, RN RN lg3 Mallorie Owens, CAROL ANN RN eh3 Corrections: (The following items were deleted from the chart) 16:35 16:33 PMHx: Hypertension; eh3 eh3 18:32 16:48 Head Angio+CT.RAD.BRZ ordered. EDMS EDMS 18:36 16:48 Neck Angio+CT.RAD.BRZ ordered. EDMS EDMS 18:57 18:56 Normal except: [facility] Extremely Turbid; UKET TRACE; UBLD 3+ (OVER); UPROT 1+; UUROB cp 1+; UESTR 500; UWBC >50; URBC >50. cp 21:50 19:18 cp cg 10/02 03:12 03:11 Rate is 78 beats/min. Rhythm is regular. RI interval is normal. QRS interval is cp prolonged at 130 msec. Interpreted by me. Reviewed by me. cp
--- NOTE | 2023-08-30 19:19 | ER ---
Nurse's Notes [facility] Name: Chinedu Singh Age: 62 yrs Sex: Male : 1960 Arrival Date: 08/30/2023 Time: 16:24 Bed 19 Private MD: Diagnosis: Altered mental status, unspecified;Acute kidney failure, unspecified Presentation: 08/30 16:27 Chief complaint: EMS states: toned out to [facility] for AMS, caregiver states pt "isn't eh3 acting right," he normally makes eye contact but has not been making eye contact today. Coronavirus screen: Vaccine status: Patient reports receiving the 2nd dose of the covid vaccine. Ebola Screen: No symptoms or risks identified at this time. Initial Sepsis Screen: Does the patient meet any 2 criteria? Altered Mental Status. No. Patient's initial sepsis screen is negative. Does the patient have a suspected source of infection? No. Patient's initial sepsis screen is negative. Risk Assessment: Do you want to hurt yourself or someone else? Patient reports no desire to harm self or others. Onset of symptoms was August 30, 2023. 16:27 Method Of Arrival: EMS: [facility] 3 16:27 Acuity: LITO 2 eh3 16:27 Care prior to arrival: IV initiated. 22 GA, in the right hand, Glucose check: 124 eh3 Oxygen administered. via nasal cannula. Triage Assessment: 22:06 General: Appears in no apparent distress. Behavior is calm, flat. lg3 Historical: - Allergies: 18:09 No Known Allergies; hb - PMHx: 16:33 Anxiety; Cerebral infarction; contractures; CVA; Dementia; Depression; depressive eh3 disorder; dysarthria; GERD; hemiplegia; Hyperlipidemia; hemiplegia; Hypertensive disorder; GERD; VASCULAR DEMENTIA; - Immunization history:: Adult Immunizations up to date. - Social history:: Smoking status: unknown. Screenin:33 [facility] ED Fall Risk Assessment (Adult) Score/Fall Risk Level 0 - 2 = Low Risk. Abuse eh3 screen: Denies threats or abuse. Denies injuries from another. Nutritional screening: No deficits noted. Tuberculosis screening: No symptoms or risk factors identified. 17:30 Alyssa Swallow Protocol Exclusion Criteria: Unable to remain alert for testing: Yes MD tam Notified: Bruno KINCAID. Assessment: 16:30 Reassessment: No changes from previously documented assessment. See triage assessment. eh3 Pain: Unable to use pain scale. Patient is disoriented. Neuro: Level of Consciousness is awake, Oriented to none Facial symmetry appears normal, Pupils are Pupil Size: 5mm. 17:30 Reassessment: Patient appears in no apparent distress at this time. Patient and/or eh3 family updated on plan of care and expected duration. Pain level reassessed. Pt awake, respirations equal and unlabored, skin warm/dry/pink. 18:30 Reassessment: Patient appears in no apparent distress at this time. Patient and/or eh3 family updated on plan of care and expected duration. Pain level reassessed. Pt awake, respirations equal and unlabored, skin warm/dry/pink. Family at bedside. 19:30 Reassessment: Patient appears in no apparent distress at this time. Patient and/or eh3 family updated on plan of care and expected duration. Pain level reassessed. Pt awake, respirations equal and unlabored, skin warm/dry/pink. Family at bedside. 20:30 Reassessment: Patient appears in no apparent distress at this time. Patient and/or eh3 family updated on plan of care and expected duration. Pain level reassessed. Pt awake, respirations equal and unlabored, skin warm/dry/pink. Family at bedside. Vital Signs: 16:27 BP 109 / 60; Pulse 82; Resp 16; Temp 98.4(O); Pulse Ox 100% on 3 lpm NC; 3 17:00 BP 103 / 73; Pulse 79; Resp 16; Pulse Ox 100% on 3 lpm NC; 3 17:30 BP 107 / 72; Pulse 76; Resp 15; Pulse Ox 100% on 3 lpm NC; 3 18:00 BP 131 / 66; Pulse 78; Resp 16; Pulse Ox 100% on 3 lpm NC; 3 18:30 BP 129 / 67; Pulse 59; Resp 15; Pulse Ox 96% on 3 lpm NC; 3 19:30 BP 123 / 86; Pulse 81; Resp 12; Pulse Ox 100% on 3 lpm NC; 3 20:30 BP 97 / 60; Pulse 78; Resp 13; Pulse Ox 100% on 3 lpm NC; 3 21:52 BP 106 / 75; Pulse 73; Resp 13 S; Pulse Ox 100% on 3 lpm NC; lg3 ED Course: 16:27 Patient arrived in ED. eh3 16:28 Bruno Bazzi PA is PHCP. cp 16:28 Bruno Del Cid MD is Attending Physician. cp 16:33 Triage completed. eh3 16:33 Patient has correct armband on for positive identification. Placed in gown. Bed in low eh3 position. Call light in reach. Side rails up X2. Provided Education on: Use of call arroyo. Client placed on continuous cardiac and pulse oximetry monitoring. NIBP monitoring applied. Door closed. Noise minimized. Warm blanket given. 16:47 CT Stroke Brain w/o Contrast In Process Unspecified. EDMS 17:07 Mallorie Owens, CAROL ANN is Primary Nurse. eh3 17:30 Inserted saline lock: 22 gauge in right antecubital area, using aseptic technique. eh3 Blood collected. 17:37 Stroke CXR 1 View In Process Unspecified. EDMS 18:15 Straight cath inserted, using sterile technique, 18 Fr. Returned avis urine. Patient eh3 tolerated well. 19:17 Noah Gao MD is Hospitalizing Provider. cp 19:18 CT Chest Abdomen Pelvis W/O Contrast In Process Unspecified. EDMS 21:15 Report given to CAROL ANN Ramirez. eh3 22:05 No provider procedures requiring assistance completed. Patient admitted, IV remains in lg3 place. intact, No redness/swelling at site. 22:05 Arm band placed on right wrist. lg3 Administered Medications: 19:04 Drug: Rocephin IV 1 grams IV at calculated rate once; Given slow IV push per pharmacy eh3 instructions Route: IV; Rate: calculated rate; Site: right antecubital; 20:00 Follow up: Response: No adverse reaction; IV Status: Completed infusion; IV Intake: [id number] 21:32 Drug: NS 0.9% IV 1000 ml IV at 1000 ml/hr Per protocol; 1000 mL bolus Route: IV; Rate: lg3 1000 ml/hr; Site: right antecubital; 21:32 Drug: NS 0.9% IV 1000 ml IV at 100 ml/hr continuous Route: IV; Rate: 100 ml/hr; Site: lg3 right antecubital; Medication: 22:06 VIS not applicable for this client. lg3 Intake: 20:00 IV: 10ml; Total: 10ml. eh3 Outcome: 19:18 Decision to Hospitalize by Provider. cp 22:05 Admitted to Tele accompanied by tech, via stretcher, room 411, with oxygen, Report lg3 called to Sofía 22:05 Condition: stable 22:05 Instructed on the need for admit, 22:45 Patient left the ED. bp Signatures: Dispatcher [employer] EDMS Bruno Bazzi PA PA cp Zenia Romero RN CAROL ANN hb Damon Felipe RN RN bp Ashley Escobedo RN RN 3 Mallorie Owens RN RN 3 Corrections: (The following items were deleted from the chart) 16:35 16:33 PMHx: Hypertension; 3 3 18:35 16:00 Reassessment: No changes from previously documented assessment. See triage 3 assessment 3 18:35 16:00 Pain: Unable to use pain scale. Patient is disoriented. 3 3 18:35 16:00 Neuro: Level of Consciousness is awake, Oriented to none Facial symmetry appears eh3 normal, Pupils are Pupil Size: 5mm 3 18:38 16:27 Care prior to arrival: Glucose check: 124 3 3
--- NOTE | 2023-08-30 20:32 | RAD REPORT ---
EXAM DESCRIPTION: CT - Chest Abd Pelvis Wo Con - 08/30/2023 7:16 pm CLINICAL HISTORY: AMS COMPARISON: Thorax Wo Con dated 01/04/2023; Chest For Pe Angio dated 02/19/2017; THORAX W CONTRAST date d 01/28/2012; Chest Single View dated 08/30/2023 TECHNIQUE: Thin axial CT images of the chest, abdomen, pelvis, performed without IV contrast. Multip lanar reformats were generated and reviewed. All CT scans are performed using dose optimization technique as appropriate and may include automated exposure control or mA/KV adjustment according to patient size. FINDINGS: The lungs are clear apart from mild right basilar atelectasis.Elevation of the right hemid iaphragm.No pleural or pericardial effusion.No intrathoracic adenopathy. The liver, spleen, pancreas, adrenal glands and kidneys are within normal limits. No bowel obstruction, free air, free fluid or abscess. Normal appendix. Left inguinal hernia containi ng fat No pathologic lymphadenopathy in the abdomen or pelvis. No worrisome osseous finding. IMPRESSION: No acute abnormalities in the chest, abdomen, and pelvis. Incidental findings as above
[2023-08-30] MEDS ORDERED: NA CHLORIDE 0.9% 2,000 ML ONE (21:36)
[2023-08-31 06:29] LABS: Potassium 3.6 mEq/L (3.5-5.1)
[2023-08-31 06:48] VITALS: BMI 31.3
[2023-08-31 07:42] LABS: Absolute Lymphocytes (CBC) 1.5 K/uL (0.7-4.9); Hematocrit 35.7 % (39.6-49.0); Lymphocytes % 21.3 % (15.3-44.8); MCV 91.2 fL (80-100); MPV 9.1 fL (7.6-11.3); Platelets 187 thou/uL (152-406); RBC Red Blood Cell Count 3.92 M/uL (4.33-5.43)
[2023-08-31 08:32] LABS: Blood Morphology Comment NOT SEEN (NOT SEEN); Platelet Estimate ADEQ; White Blood Cell Scan OK (OK)
[2023-08-31] MEDS: NA CHLORIDE 0.9% 1,000 ML IV SCH ×2 (09:07→21:43)
[2023-08-31] MEDS: CEFTRIAXONE 1,000 MG in NA CHLORIDE 0.9% 50 ML IVPB SCH ×2 (09:08→21:42)
--- NOTE | 2023-08-31 16:49 | EKG ---
Test Date: 2023-08-30 Test Time: 18:02:32 Toll Service Observer: DIANA MEASUREMENT RESULTS: Intervals: Rate: 78 UT: 136 QRSD: 130 QT: 448 QTc: 510 [place]: P: 56 UT: 136 QRS: -63 T: 59 INTERPRETIVE STATEMENTS: Normal sinus rhythm Left axis deviation Right bundle branch block Voltage criteria for left ventricular hypertrophy Abnormal ECG Compared to ECG 08/23/2023 08:55:05 Left-axis deviation now present Left anterior fascicular block no longer present Bifascicular block no longer present Electronically Signed On 08-31-23 16:46:46 CDT by Ariel Chavez
[2023-08-31 21:18] VITALS: O2SAT 96
[2023-09-01 04:04] LABS: Potassium 3.4 mEq/L (3.5-5.1)
[2023-09-01] MEDS: NA CHLORIDE 0.9% 1,000 ML IV SCH ×2 (06:37→08:10)
[2023-09-01] MEDS ORDERED: POTASSIUM CL SA 10 MEQ TAB PO ONE (07:35)
[2023-09-01] MEDS ORDERED: AMLODIPINE 5 MG TAB PO ONE (07:35)
[2023-09-01] MEDS ORDERED: lisinopriL 5 MG TAB PO ONE (07:36)
[2023-09-01] MEDS: CEFTRIAXONE 1,000 MG in NA CHLORIDE 0.9% 50 ML IVPB SCH (08:16)
--- NOTE | 2023-09-01 08:37 | HP ---
Date of Admission: 08/31/2023 Chief Complaint: Altered mental status. History Of Present Illness: This is a 62-year-old pleasant male patient who was admitted to the hospital after he was brought into emergency room from longterm with altered mental status. We do not know for how long the patient had this change in his mental status, but after he was evaluated in the ER, he was admitted to the hospital with acute kidney injury, volume depletion, and urinary tract infection. After he was evaluated, he was admitted to the hospital under my service as hospitalist team because I was providing assistance to our hospitalist team. This morning when I saw the patient, he was sleeping, but he woke up on verbal command and was able to answer simple questions. Allergies: NO KNOWN ALLERGIES. Medications: List reviewed. Review of Systems: SECURITY SYSTEM INSTALLER: As mentioned above, significant for altered mental status as well as left- sided weakness due to his left hemiparesis from prior stroke. All other systems reviewed and negative. Past Medical History: Significant for stroke with left-sided hemiparesis and hypertension, dementia, history of recurrent urinary tract infections. Significant for hyperlipidemia, gastroesophageal reflux disease, depression. Past Surgical History: Not pertinent. Social History: Negative for smoking or alcohol use. Family History: Father had a stroke. Physical Examination: Vital Signs: Temperature this morning 97.4, pulse 71, respiratory rate 16, blood pressure 138/67, oxygen saturation 98%. Height 5 feet 7 inches, weight 200 pounds. General: Awake, alert, oriented, not in distress. HEENT: Head atraumatic, normocephalic. Conjunctivae nonerythematous. Sclerae white. Mouth, no thrush or edema noted. Ears/Nose, no mass, lesion, discharge noted. Neck: Supple. No JVD, lymph nodes, bruit, thyromegaly noted. Lungs: Bilateral good equal air entry. Clear to auscultation. No rhonchi. No rales. Heart: Normal heart sounds, no murmur or gallop. Abdomen: Soft, bowel sounds normal. No guarding, rigidity, tenderness, mass, hepatosplenomegaly, distention, or bruit noted. Extremities: No leg edema. No calf tenderness. Skin: No rash, ulcer, cellulitis. Lymphatics: No lymph node enlargement in neck, supraclavicular, infraclavicular region. SECURITY SYSTEM INSTALLER: Patient has left-sided hemiparesis. Chest: Unremarkable. External Genitalia: Deferred. Rectal: Deferred. Laboratory Data: Yesterday, white count 9.7, hemoglobin 13.7, platelets 267. This morning white count 7, hemoglobin 12.1, platelets 187. Yesterday sodium 140, potassium 3.7, chloride 106, bicarb 28, BUN 33, creatinine 3.58, glucose 95. Liver function tests unremarkable. Ammonia level less than 10. This morning sodium 143, potassium 3.6, chloride 111, bicarb 27, BUN 29, creatinine 2.13, glucose 97. Leukocyte esterase 500, RBC more than 50, WBC more than 50, bacteria less than 20, protein 1+. CAT scan of the brain, no acute intracranial changes. Impression: 1. Acute kidney injury. 2. Volume depletion. 3. Urinary tract infection. 4. Toxic and metabolic encephalopathy. 5. Hypertension. 6. Hyperlipidemia. 7. Gastroesophageal reflux disease. 8. Dementia. 9. Depression. Plan: We will admit patient to hospital for further evaluation and management of this problem. Patient is appropriate for inpatient and is expected to spend 2 midnights in the hospital. We will go ahead and continue IV fluid and empiric antibiotics, which was started in emergency room. We will follow up on culture results and once the final report is available, we will decide about culture specific antibiotic. IV fluid will be continued. We will repeat blood work tomorrow morning and order was written for nursing staff to find out from longterm regarding type of diet that he eats and to continue that. Fall precaution was ordered. I will see him tomorrow for followup. The patient is expected to spend 2 midnights in hospital and is appropriate for inpatient. MARLENA/MODL Voice ID: [id number] MTDD
[2023-09-01 12:31] VITALS: BP 162/93; TEMP 98.1
--- NOTE | 2023-09-02 01:16 | DS ---
Date of Discharge: 09/01/2023 Disposition: Discharged to go to [facility]. Physical Examination: HEENT: Unremarkable. Lungs: Clear to auscultation. Heart: Sounds normal. Abdomen: Soft. Bowel sounds normal. No guarding, rigidity, tenderness, or distention. Extremities: No leg edema. Laboratory Data: Upon admission, white count 9.7, hemoglobin 13.7, platelets 267. Yesterday, white count 7, hemoglobin 12.1, and platelet count 187. Urine culture and blood culture result came back negative. Chemistry upon admission; sodium 140, potassium 3.7, chloride 106, bicarb 28, BUN 33, creatinine 3.58, glucose 95. Liver function tests unremarkable. Ammonia level less than 10. Today, sodium 141, potassium 3.4, chloride 109, bicarb 30, BUN 15, creatinine 0.82 glucose 101. His CAT scan of the chest, abdomen, and pelvis done in the emergency room was negative for any acute changes. Chest x-ray was negative for any acute cardiopulmonary changes. CAT scan of the head was negative for any acute intracranial changes. Discharge Medications And Instructions: Continue all prior [facility] medications except following changes: 1. Stop furosemide. 2. Start cefuroxime 250 mg, take 1 tablet by mouth 2 times a day with food for 1 week. 3. The patient to drink 60 ounces of water daily. 4. Labs, chem-7 to be done at [facility] in 2 days and then as per [facility] physician. 5. Notify the patient's [facility] physician upon arrival to [facility]. Hospital Course: This is a 62-year-old male patient, who was admitted to the hospital after he was sent from [facility] with altered mental status. Please see dictated H and P for more information. The patient was admitted under my service, as I was providing my service as part of hospitalist team. After he was admitted to the hospital, IV fluid was started and empiric IV antibiotic, ceftriaxone, was started. His urinalysis was abnormal consistent with urinary tract infection. His urine culture and blood culture was drawn and results came back negative today. He has responded very well to IV fluid and IV antibiotics and his mental status is back to normal this morning when I saw him. His sister was present with him and no new complaints or problems reported. I did call [facility] nurse and communicated with him regarding all his [facility] medications and gave instruction to [facility] nurse to discontinue furosemide. The patient does not have any history of congestive heart failure and as per information obtained from [facility], he was getting furosemide for blood pressure management. The patient was discharged to go back to [facility] in stable condition today. Final Diagnoses: 1. Acute kidney injury. 2. Volume depletion. 3. Urinary tract infection. 4. Toxic and metabolic encephalopathy. 5. Hypertension. 6. Hyperlipidemia. 7. Gastroesophageal reflux disease. 8. Dementia. 9. Depression. MARLENA/MODL Voice ID: [id number] Report ID: [id number] MTDD
== END 2023-09-01 11:59 | disposition home or self-care (01) | DRG 682 ==
LOC: ER 16:24 → 4TH 21:30
PROVIDERS: ADMIT Internal Medicine; ATTEND Internal Medicine
DX: N17.9 Acute kidney failure, unspecified (principal); G92.8 Other toxic encephalopathy; I69.354 Hemiplegia and hemiparesis following cerebral infarction affecting left non-dominant side; F01.53 Vascular dementia, unspecified severity, with mood disturbance; N39.0 Urinary tract infection, site not specified; E78.5 Hyperlipidemia, unspecified; E86.9 Volume depletion, unspecified; K21.9 Gastro-esophageal reflux disease without esophagitis
CPT/HCPCS: 36415; 51702; 70450; 71045; 71250; 74176; 80048; 80076; 81001; 82140; 83605; 83735; 84484; 85025; 85610; 85730; 87040; 87086; 87088; 93005; 96365; 99285; J0696; J7030